=== PATIENT | female | born 1980 | race Caucasian/White ===

== ENCOUNTER 2021-09-20 17:03 | Observation (INO) | payer OTHER, MEDICAID, SELFPAY ==
[2021-09-20 17:43] VITALS: BP 140/103; PULSE 117; RESP 22; TEMP 36.8; O2SAT 96; BMI 17.1
--- NOTE | 2021-09-20 17:52 | DI.RAD.S_ITS ---
PROCEDURE: XR CHEST 1V INDICATIONS: suspected sepsis TECHNIQUE: One view of the chest was acquired. COMPARISON: None. FINDINGS: Surgical changes and devices: None. Lungs and pleura: Lungs are clear. No pleural effusions or pneumothorax. Mediastinum: Mediastinal contours appear normal. Heart size is normal. Bones and chest wall: No suspicious bony lesions. Overlying soft tissues appear unremarkable. IMPRESSION: No acute cardiothoracic abnormality. Dictated by: Xavier Shah M.D. on 09/20/2021 at 18:37 Approved by: Xavier Shah M.D. on 09/20/2021 at 18:37
[2021-09-20] MEDS: SODIUM CHLORIDE 0.9% 1,000 ML 1000 ML IV (18:45)
--- NOTE | 2021-09-20 18:48 | ED_ITS ---
HPI - Extremity Problem <KRISTEL Lozano - Last Filed: 09/20/21 19:54> General Chief complaint: Extremity Problem,Nontraumatic Stated complaint: Infection lower left leg Time Seen by Provider: 09/20/21 17:51 Source: patient Mode of arrival: Ambulatory History of Present Illness HPI Narrative: 41-year-old female, daily smoker, who presents emergency department with left lower extremity pain, redness and swelling x4 days extending to her distal thigh. Patient with history MRSA and fentanyl use. Patient reports that she woke up after sleeping for 2 days, following a rivera, and noticed that her left leg was red and swollen. Patient went to [facility] where she was admitted for 2 days, but left Against Medical Advice because she did not like the care she was receiving. Previous CT left lower extremity conducted September 18 revealed the impression: Diffuse soft tissue edema and anterior gooden, ankle as well as the dorsal posterior plantar aspect of the foot consistent with cellulitis. Patient's mother insisted that she come in to [facility] to receive treatment Related Data Home Medications Medication Instructions Recorded Confirmed No Known Home Medications 09/20/21 09/20/21 Allergies Allergy/AdvReac Type Severity Reaction Status Date / Time sulfamethoxazole Allergy Verified 09/20/21 17:42 [From Bactrim] trimethoprim [From Bactrim] Allergy Verified 09/20/21 17:42 Review of Systems <KRISTEL Lozano - Last Filed: 09/20/21 19:54> Review of Systems Narrative: Narrative: GENERAL: Denies chills, fatigue, fever, sweats. See HPI HEENT: Denies sinus pain, ear pain, sore throat, difficulty swallowing, dizziness. RESPIRATORY: Denies dyspnea, cough, wheezing, sputum. CARDIOVASCULAR: Denies chest pain, palpitations, edema. GASTROINTESTINAL: Denies nausea, vomiting, abdominal pain, diarrhea, constipation. : Denies dysuria, frequency, incontinence, hematuria, urinary retention, flank pain. MSK: Denies weakness, joint pain, or bony pain. SKIN: Endorses pain, redness and swelling of left lower extremity. NEUROLOGIC: Denies weakness, dizziness, headache, numbness, confusion. PSYCHIATRIC: No concerning psychosocial issues. Patient History <KRISTEL Lozano - Last Filed: 09/20/21 19:54> Medical History (Updated 09/20/21 @ 23:28 by Carmen Dixon [facility]) History of narcotic addiction Methamphetamine use MRSA (methicillin resistant staph aureus) culture positive Surgical History (Updated 09/20/21 @ 23:28 [facility] History of breast augmentation Family History (Updated 09/20/21 @ 23:37 by [facility] Mother Hypertension Brother Bipolar 1 disorder, depressed Social History household members: none Smoking Status: Current every day smoker alcohol intake: current Smoking Status: Current every day smoker Substance Use Type: former substance user and marijuana Exam <KRISTEL Lozano - Last Filed: 09/20/21 19:54> Narrative Exam Narrative: Exam Narrative: GENERAL: This is a well-nourished, well-developed patient, in no acute distress HEAD: Atraumatic. Normocephalic. EYES: Pupils equal round and reactive. Extraocular motions intact. No scleral icterus, injection or drainage. ENT: Nose without bleeding, purulent drainage. Throat without erythema, tonsillar hypertrophy or exudate. Airway patent. NECK: Trachea midline. No JVD or lymphadenopathy. Nontender. CARDIOVASCULAR: Regular rate and rhythm without murmurs, peripheral pulses intact, cap refill <2 sec. RESPIRATORY: Breath sounds equal and clear bilaterally. No wheezes, rales, or rhonchi. No cough. No increased respiratory effort. No accessory muscle use. GASTROINTESTINAL: Abdomen soft, non-tender, nondistended without guarding or rebound. No suprapubic pain. MSK: Moves all extremities. Normal range of motion, no clubbing or edema. Neurovascularly intact. NEURO: A&O x 3. SKIN: Left lower extremity is red, warm and swollen from the knee down. Pen douglass outlining previous swelling by [facility]. Initial Vital Signs Initial Vital Signs: Vital Signs Temperature 98.3 F 09/20/21 17:43 Pulse Rate 117 H 09/20/21 17:43 Respiratory Rate 22 09/20/21 17:43 Blood Pressure 140/103 H 09/20/21 17:43 Pulse Oximetry 96 09/20/21 17:43 Oxygen Delivery Method 09/20/21 17:43 Reviewed <Erick Blevins MD - Last Filed: 09/21/21 06:37> Initial Vital Signs Initial Vital Signs: Vital Signs Temperature 98.3 F 09/20/21 17:43 Pulse Rate 117 H 09/20/21 17:43 Respiratory Rate 22 09/20/21 17:43 Blood Pressure 140/103 H 09/20/21 17:43 Pulse Oximetry 96 09/20/21 17:43 Oxygen Delivery Method 09/20/21 17:43 Course <KRISTEL Lozano - Last Filed: 09/20/21 19:54> Orders Ordered: ED Orders 09/20/21 22:25 Urinalysis and Microscopic Urgent 09/21/21 05:20 Complete Blood Count AUTO DIFF Routine Comprehensive Metabolic Panel Routine Acetaminophen (Acetaminophen 325 Mg Tablet) 650 mg PO Q6HR PRN PRN Reason: Fever/Mild Pain (1-3) Enoxaparin Sodium (Enoxaparin 40 Mg/0.4 Ml Syringe) 40 mg SUBCUT DAILY LAURY Vancomycin HCl (Vancomycin) 1,000 mg in 200 mls @ 100 mls/hr IV Q12H LAURY Last Admin: 09/21/21 00:03 Dose: 100 mls/hr Documented By: PERI Sodium Chloride (Normal Saline 0.9%) 1,000 mls @ 84 mls/hr IV CONT LAURY Ondansetron HCl (Ondansetron 4 Mg Odt) 4 mg PO Q8HR PRN PRN Reason: Nausea And Vomiting Oxycodone HCl (Oxycodone Ir 10 Mg Tablet) 10 mg PO Q4HR PRN PRN Reason: Pain, Severe (7-10) Last Admin: 09/20/21 23:25 Dose: 10 mg Documented By: AGW Discontinued Medications Sodium Chloride (Normal Saline 0.9%) 1,000 mls @ 1,000 mls/hr IV BOLUS ONE Stop: 09/20/21 18:51 Last Infusion: 09/20/21 20:43 Dose: 0 mls/hr Documented By: Admin: 09/20/21 18:45 Dose: 1,000 mls/hr Documented By: BV Lactated Ringer's (Lactated Ringers) 1,000 mls @ 150 mls/hr IV CONT LAURY Last Admin: 09/20/21 23:02 Dose: 150 mls/hr Documented By: PERI Vancomycin HCl (Vancomycin Per Pharmacy) 1 request MISC NOW ONE Stop: 09/20/21 20:49 Last Admin: 09/21/21 00:04 Dose: 1 request Documented By: PERI Consultations Consultation #1: Dr. Dixon, hospitalist, agreed to admission for cellulitis. Vital Signs Vital signs: Vital Signs - 8 hr 09/20/21 17:43 Temperature 98.3 F Pulse Rate 117 H Respiratory Rate 22 Blood Pressure 140/103 H Pulse Oximetry 96 Oxygen Delivery Method Room Air <Erick Blevins MD - Last Filed: 09/21/21 06:37> Orders Ordered: ED Orders 09/20/21 22:25 Urinalysis and Microscopic Urgent 09/21/21 05:20 Complete Blood Count AUTO DIFF Routine Comprehensive Metabolic Panel Routine Acetaminophen (Acetaminophen 325 Mg Tablet) 650 mg PO Q6HR PRN PRN Reason: Fever/Mild Pain (1-3) Enoxaparin Sodium (Enoxaparin 40 Mg/0.4 Ml Syringe) 40 mg SUBCUT DAILY LAURY Vancomycin HCl (Vancomycin) 1,000 mg in 200 mls @ 100 mls/hr IV Q12H LAURY Last Admin: 09/21/21 00:03 Dose: 100 mls/hr Documented By: PERI Sodium Chloride (Normal Saline 0.9%) 1,000 mls @ 84 mls/hr IV CONT LAURY Ondansetron HCl (Ondansetron 4 Mg Odt) 4 mg PO Q8HR PRN PRN Reason: Nausea And Vomiting Oxycodone HCl (Oxycodone Ir 10 Mg Tablet) 10 mg PO Q4HR PRN PRN Reason: Pain, Severe (7-10) Last Admin: 09/20/21 23:25 Dose: 10 mg Documented By: PERI Discontinued Medications Sodium Chloride (Normal Saline 0.9%) 1,000 mls @ 1,000 mls/hr IV BOLUS ONE Stop: 09/20/21 18:51 Last Infusion: 09/20/21 20:43 Dose: 0 mls/hr Documented By: Admin: 09/20/21 18:45 Dose: 1,000 mls/hr Documented By: BV Lactated Ringer's (Lactated Ringers) 1,000 mls @ 150 mls/hr IV CONT LAURY Last Admin: 09/20/21 23:02 Dose: 150 mls/hr Documented By: PERI Vancomycin HCl (Vancomycin Per Pharmacy) 1 request MISC NOW ONE Stop: 09/20/21 20:49 Last Admin: 09/21/21 00:04 Dose: 1 request Documented By: PERI Vital Signs Vital signs: Vital Signs - 8 hr 09/20/21 17:43 Temperature 98.3 F Pulse Rate 117 H Respiratory Rate 22 Blood Pressure 140/103 H Pulse Oximetry 96 Oxygen Delivery Method Room Air MDM - Extremity (Nontraumatic) <KRISTEL Lozano - Last Filed: 09/20/21 19:54> Differential Diagnosis Differential diagnosis: Likely cellulitis and lower extremity edema; Unlikely other (sepsis) Lab Data Result diagrams: 09/21/21 05:20 09/21/21 05:20 Labs: Lab Results 09/20/21 09/20/21 09/20/21 Range/Units 18:39 18:39 18:39 WBC 8.4 (4.5-11.0) X10^3/uL RBC 3.97 L (4.0-5.2) X10^6/uL Hgb 12.3 (12.0-16.0) g/dL Hct 35.2 L (36-46) % MCV 88.6 (80-100) fL MCH 30.9 (26-34) PG MCHC 34.9 (30-36) % RDW 13.2 (11.6-14.8) % Plt Count 287 (150-400) X10^3/uL Neut % (Auto) 75.7 H (50-75) % Lymph % (Auto) 14.8 L (25-40) % [place] % (Auto) 8.4 (3-14) % Eos % (Auto) 0.7 L (2-4) % Baso % (Auto) 0.4 (0-2) % Neut # (Auto) 6400 (6152-6222) /uL Lymph # (Auto) 1200 (2553-2010) /uL [place] # (Auto) 700 (0-900) /uL Eos # (Auto) 100 (0-450) /uL Baso # (Auto) 0 (0-100) /uL Sodium 139 (137-145) mmol/L Potassium 3.4 (3.4-5.1) mmol/L Chloride 102 (98-107) mmol/L Carbon Dioxide 30 (22-32) mmol/L BUN 7 (7-17) mg/dL Creatinine 0.61 (0.52-1.04) mg/dL Estimated GFR > 60 (>60) mL/min BUN/Creatinine Ratio 11.5 (6-22) Glucose 106 H (70-100) mg/dL Lactate 0.9 (0.7-2.1) mmol/L Calcium 9.2 (8.4-10.2) mg/dL Magnesium (1.6-2.3) mg/dL Total Bilirubin 0.3 (0.2-1.3) mg/dL AST 29 (14-36) IU/L ALT 24 (<35) IU/L Alkaline Phosphatase 90 (38-126) U/L Total Protein 7.6 (6.3-8.2) g/dL Albumin 4.0 (3.5-5.0) g/dL Globulin 3.6 (1.7-4.1) g/dL Albumin/Globulin Ratio 1.1 (1.0-2.8) Lipase 22 L (23-300) U/L Procalcitonin 0.09 (<0.5) ng/mL SARS-CoV-2 (PCR) (Negative) 09/20/21 09/20/21 Range/Units 18:39 18:40 WBC (4.5-11.0) X10^3/uL RBC (4.0-5.2) X10^6/uL Hgb (12.0-16.0) g/dL Hct (36-46) % MCV (80-100) fL MCH (26-34) PG MCHC (30-36) % RDW (11.6-14.8) % Plt Count (150-400) X10^3/uL Neut % (Auto) (50-75) % Lymph % (Auto) (25-40) % [place] % (Auto) (3-14) % Eos % (Auto) (2-4) % Baso % (Auto) (0-2) % Neut # (Auto) (8365-8710) /uL Lymph # (Auto) (3084-9741) /uL [place] # (Auto) (0-900) /uL Eos # (Auto) (0-450) /uL Baso # (Auto) (0-100) /uL Sodium (137-145) mmol/L Potassium (3.4-5.1) mmol/L Chloride (98-107) mmol/L Carbon Dioxide (22-32) mmol/L BUN (7-17) mg/dL Creatinine (0.52-1.04) mg/dL Estimated GFR (>60) mL/min BUN/Creatinine Ratio (6-22) Glucose (70-100) mg/dL Lactate (0.7-2.1) mmol/L Calcium (8.4-10.2) mg/dL Magnesium 1.9 (1.6-2.3) mg/dL Total Bilirubin (0.2-1.3) mg/dL AST (14-36) IU/L ALT (<35) IU/L Alkaline Phosphatase (38-126) U/L Total Protein (6.3-8.2) g/dL Albumin (3.5-5.0) g/dL Globulin (1.7-4.1) g/dL Albumin/Globulin Ratio (1.0-2.8) Lipase (23-300) U/L Procalcitonin (<0.5) ng/mL SARS-CoV-2 (PCR) Negative (Negative) Imaging Data Chest x-ray: Radiologist's Impression: [place] [address] XRay Report Signed Patient: Ruby Staley MR#: [id number] : 1980 Acct:[id number] Age/Sex: 41 / F Date of Service: 09/20/21 Loc: ED Accession Number: [id number] ?? Procedure: XR chest 1V Ordering Provider: Yolanda Laboy D.O. PROCEDURE:? XR CHEST 1V ? INDICATIONS:? suspected sepsis ? TECHNIQUE:? One view of the chest was acquired.? ? COMPARISON:? None. ? FINDINGS:? ? Surgical changes and devices:? None.? ? Lungs and pleura:? Lungs are clear.? No pleural effusions or pneumothorax.? ? Mediastinum:? Mediastinal contours appear normal.? Heart size is normal.? ? Bones and chest wall:? No suspicious bony lesions.? Overlying soft tissues appear unremarkable.? ? IMPRESSION:? No acute cardiothoracic abnormality.? ? ? Dictated by: Xavier Shah M.D. on 09/20/2021 at 18:37 ? ? Approved by: Xavier Shah M.D. on 09/20/2021 at 18:37 ? [facility] Narrative Medical decision making narrative: 41-year-old female presents emergency department with left lower extremity cellulitis x4 days. Patient was previously treated at [facility] but left Against Medical Advice due to not appreciating the care she was receiv ing. Chest x-ray was normal. Labs are unremarkable. Discussed case with Dr. Dixon, hospitalist, who agreed to admission for cellulitis. Discussed plan of care with patient, who was agreeable with course of action. <Erick Blevins MD - Last Filed: 09/21/21 06:37> Lab Data Labs: Lab Results 09/20/21 09/20/21 09/20/21 Range/Units 18:39 18:39 18:39 WBC 8.4 (4.5-11.0) X10^3/uL RBC 3.97 L (4.0-5.2) X10^6/uL Hgb 12.3 (12.0-16.0) g/dL Hct 35.2 L (36-46) % MCV 88.6 (80-100) fL MCH 30.9 (26-34) PG MCHC 34.9 (30-36) % RDW 13.2 (11.6-14.8) % Plt Count 287 (150-400) X10^3/uL Neut % (Auto) 75.7 H (50-75) % Lymph % (Auto) 14.8 L (25-40) % [place] % (Auto) 8.4 (3-14) % Eos % (Auto) 0.7 L (2-4) % Baso % (Auto) 0.4 (0-2) % Neut # (Auto) 6400 (6266-5643) /uL Lymph # (Auto) 1200 (1855-7645) /uL [place] # (Auto) 700 (0-900) /uL Eos # (Auto) 100 (0-450) /uL Baso # (Auto) 0 (0-100) /uL Sodium 139 (137-145) mmol/L Potassium 3.4 (3.4-5.1) mmol/L Chloride 102 (98-107) mmol/L Carbon Dioxide 30 (22-32) mmol/L BUN 7 (7-17) mg/dL Creatinine 0.61 (0.52-1.04) mg/dL Estimated GFR > 60 (>60) mL/min BUN/Creatinine Ratio 11.5 (6-22) Glucose 106 H (70-100) mg/dL Lactate 0.9 (0.7-2.1) mmol/L Calcium 9.2 (8.4-10.2) mg/dL Magnesium (1.6-2.3) mg/dL Total Bilirubin 0.3 (0.2-1.3) mg/dL AST 29 (14-36) IU/L ALT 24 (<35) IU/L Alkaline Phosphatase 90 (38-126) U/L Total Protein 7.6 (6.3-8.2) g/dL Albumin 4.0 (3.5-5.0) g/dL Globulin 3.6 (1.7-4.1) g/dL Albumin/Globulin Ratio 1.1 (1.0-2.8) Lipase 22 L (23-300) U/L Procalcitonin 0.09 (<0.5) ng/mL SARS-CoV-2 (PCR) (Negative) 09/20/21 09/20/21 Range/Units 18:39 18:40 WBC (4.5-11.0) X10^3/uL RBC (4.0-5.2) X10^6/uL Hgb (12.0-16.0) g/dL Hct (36-46) % MCV (80-100) fL MCH (26-34) PG MCHC (30-36) % RDW (11.6-14.8) % Plt Count (150-400) X10^3/uL Neut % (Auto) (50-75) % Lymph % (Auto) (25-40) % [place] % (Auto) (3-14) % Eos % (Auto) (2-4) % Baso % (Auto) (0-2) % Neut # (Auto) (9688-0000) /uL Lymph # (Auto) (5896-8937) /uL [place] # (Auto) (0-900) /uL Eos # (Auto) (0-450) /uL Baso # (Auto) (0-100) /uL Sodium (137-145) mmol/L Potassium (3.4-5.1) mmol/L Chloride (98-107) mmol/L Carbon Dioxide (22-32) mmol/L BUN (7-17) mg/dL Creatinine (0.52-1.04) mg/dL Estimated GFR (>60) mL/min BUN/Creatinine Ratio (6-22) Glucose (70-100) mg/dL Lactate (0.7-2.1) mmol/L Calcium (8.4-10.2) mg/dL Magnesium 1.9 (1.6-2.3) mg/dL Total Bilirubin (0.2-1.3) mg/dL AST (14-36) IU/L ALT (<35) IU/L Alkaline Phosphatase (38-126) U/L Total Protein (6.3-8.2) g/dL Albumin (3.5-5.0) g/dL Globulin (1.7-4.1) g/dL Albumin/Globulin Ratio (1.0-2.8) Lipase (23-300) U/L Procalcitonin (<0.5) ng/mL SARS-CoV-2 (PCR) Negative (Negative) Discharge Plan Departure Patient Disposition: Admitted As Inpatient Clinical Impression: Cellulitis Admit Date/Time: 09/20/21 21:08 Admit Provider: Carmen Dixon <Erick Blevins MD - Last Filed: 09/21/21 06:37> Cosign ED Attending Cosignature Attestation: I was immediately available in the department for consultation. ?This documentation has been reviewed and I agree with assessment and plan. Supervised by Erick Blevins MD
[2021-09-20 19:03] LABS: Add Manual Diff / Slide Review NO; Basophils Absolute Auto 0 /uL (0-100); Basophils Percent Auto 0.4 % (0-2); Eosinophils Absolute Auto 100 /uL (0-450); Eosinophils Percent Auto 0.7 % (2-4); Hematocrit 35.2 % (36-46); Hemoglobin 12.3 g/dL (12.0-16.0); Lymphocytes Absolute Auto 1200 /uL (1100-4500); Lymphocytes Percent Auto 14.8 % (25-40); Mean Corpuscular HGB Conc 34.9 % (30-36); Mean Corpuscular Hemoglobin 30.9 PG (26-34); Mean Corpuscular Volume 88.6 fL (80-100); Monocytes Absolute Auto 700 /uL (0-900); Monocytes Percent Auto 8.4 % (3-14); Neutrophils Absolute Auto 6400 /uL (1500-7000); Neutrophils Percent Auto 75.7 % (50-75); Platelet Count 287 X10^3/uL (150-400); Red Blood Cell Count 3.97 X10^6/uL (4.0-5.2); Red Cell Distribution Width 13.2 % (11.6-14.8); White Blood Cell Count 8.4 X10^3/uL (4.5-11.0)
[2021-09-20 19:05] LABS: COVID19 -Nasal RAPID Negative (Negative)
[2021-09-20 19:10] LABS: Alanine Aminotransferase 24 IU/L (<35); Albumin Globulin Ratio 1.1 (1.0-2.8); Alkaline Phosphatase 90 U/L (38-126); Aspartate Aminotransferase 29 IU/L (14-36); BUN Creatinine Ratio 11.5 (6-22); Bilirubin Total 0.3 mg/dL (0.2-1.3); Blood Urea Nitrogen 7 mg/dL (7-17); Calcium 9.2 mg/dL (8.4-10.2); Carbon Dioxide 30 mmol/L (22-32); Chloride 102 mmol/L (98-107); Estimated Glomerular Filt Rate > 60 mL/min (>60); Globulin 3.6 g/dL (1.7-4.1); Glucose 106 mg/dL (70-100); HEMOLYSIS < 15 (0-50); Lipase 22 U/L (23-300); Potassium 3.4 mmol/L (3.4-5.1); Sodium 139 mmol/L (137-145); Total Protein 7.6 g/dL (6.3-8.2)
[2021-09-20 19:11] LABS: Lactate (Lactic Acid) 0.9 mmol/L (0.7-2.1)
[2021-09-20 19:27] LABS: Procalcitonin 0.09 ng/mL (<0.5)
[2021-09-20 20:43] VITALS: O2SAT 100
[2021-09-20 21:04] LABS: Magnesium 1.9 mg/dL (1.6-2.3)
[2021-09-20 21:59] VITALS: BMI 17.1
[2021-09-20 22:15] VITALS: BP 144/94; PULSE 85; RESP 16; TEMP 37.1; O2SAT 100
[2021-09-20] MEDS: LACTATED RINGERS 1,000 ML 150 ML IV (23:02)
--- NOTE | 2021-09-20 23:09 | PM.HP.1 ---
History of Present Illness History of Present Illness Date Patient Seen: 09/20/21 Time Patient Seen: 20:54 Chief complaint: Infection lower left leg Narrative: Ruby Staley is a pleasant 41-year-old female with a history fentanyl, methamphetamine use, cellulitis, and MRSA, presented to the ED for left lower leg swelling redness and pain. The patient reports that approximately 2 weeks ago her left lower leg began showing signs of increasing redness swelling warmth weeping and pain, she reports that she was incoherent for approximately 2 days prior to going to [facility]. She also noted swelling and inflammation of the right hand index nail bed matrix (still erythemic and inflammed), and an abscess to the left breast which is now scabbed over and healing. Patient went to [facility] was admitted but states that she left Against Medical Advice as she felt she was not being treated well. Patient believes she received possibly 1 dose of IV antibiotics prior to leaving Against Medical Advice. Patient denies any insect bites, injury, or trauma to the left lower leg, or specific abscess. Patient's skin appears possible self picking with various stages of healing. Though insect bites are possible due to her living situation. Patient is currently homeless and living out of her truck, unemployed, and last used fentanyl yesterday, notes a distant history of Percocet addiction, and methamphetamine use. She denies any alcohol intake and smokes a half a pack per day times 30 years. Patient denies IV drug use. Patient denies any fever, body aches, chills, abdominal pain, nausea, vomiting, diarrhea, chest pain, shortness of breath, or headache. Patient does complain pain to the left lower leg ,erythema, warmth, and inflammation begins just below the knee and encompasses the entire lower leg and foot. Patient denies any other medical history and takes no medications. Patient notes that she is allergic to Bactrim which resulted in a retinal hemorrhage. Upon admit patient met sepsis criteria although not septic temp 98.3?, BP 140/103, HR 117, R 22, O2 saturation 96% on room air. Patient is stable not symptomatic and does not appear to be septic or in septic shock CBC, CMP, lactate, lipase, and procalcitonin are all within normal limits. Patient's chest x-ray is negative for any cardiopulmonary processes. ED reported that the patient's lower left extremity CT from 09/18 demonstrated Diffuse soft tissue edema and anterior gooden, ankle as well as the dorsal posterior plantar aspect of the foot consistent with cellulitis. Have requested records diagnostic and laboratory findings from [facility]. Blood cultures were drawn in ED. patient to be admitted for left lower leg cellulitis. Patient History Medical History (Updated 09/20/21 @ 23:28 by MICHELLE Brown) History of narcotic addiction Methamphetamine use MRSA (methicillin resistant staph aureus) culture positive Surgical History (Updated 09/20/21 @ 23:28 by MICHELLE Brown) History of breast augmentation Family & Social History Family History (Updated 09/20/21 @ 23:37 by MICHELLE Brown) Mother Hypertension Brother Bipolar 1 disorder, depressed Social History: household members none Prior Living Arrangements Homeless- living in truck. Safety & Behavioral: Feels Safe in Current Yes Environment Been Physically Hurt or No Threatened By a Person Tobacco & Substance use: Tobacco type cigarettes Smoking Status Current every day smoker 1/2ppd x 30 yrs alcohol intake current alcohol intake frequency 0-2 drinks per day Substance Use Type marijuana,former opiates, regular fentanyl use, occasional methamphetamine use Meds Home Medications and Allergies Home Medications Medication Instructions Recorded Confirmed Type No Known Home Medications 09/20/21 09/20/21 History Allergies Allergy/AdvReac Type Severity Reaction Status Date / Time sulfamethoxazole Allergy Verified 09/20/21 17:42 [From Bactrim] trimethoprim [From Bactrim] Allergy Verified 09/20/21 17:42 Review of Systems Review of Systems Narrative: All 12 point systems reviewed with the patient and are negative except otherwise documented. Exam Vital Signs (past 8 hours): - 09/20/21 17:43 09/20/21 22:15 Temperature 98.3 F 98.8 F Pulse Rate 117 H 85 Respiratory Rate 22 16 Blood Pressure 140/103 H 144/94 H Pulse Oximetry 96 100 Oxygen Delivery Method Room Air Oxygen Flow Rate 0 Oxygen Delivery Method Room Air Oxygen Flow Rate 0 Narrative Exam Narrative: General: Patient is a pleasant, thin, poorly nourished appearing female in no distress at this time. HEENT: Normocephalic, atraumatic, extraocular muscles intact, oral pharynx is clear and mucous membranes are moist. Neck is supple and symmetric, trachea is midline, no adenopathy, no thyroid enlargement, nontender, no masses palpated. Negative for JVD Chest: Normal AP diameter and contour without kyphoscoliosis, no nasal flaring, retractions, or tachypneic labored breathing. Lungs: Auscultation of all lung garrison are clear without adventitious sounds, wheezes, rhonchi, or rales. Cardio: S1 & S2 with regular rate and rhythm without murmur, rubs, or gallops, no carotid bruit, no cardiac pulsations present. Abdomen: Soft nontender, negative for organomegaly, or masses. Bowel sounds are present in all 4 quadrants without guarding or rebound, no CVA tenderness. Musculoskeletal: Decreased muscle mass, Left Lower leg: Erythema, inflammation, warmth, and pain beginning just below the knee encompassing down the leg engolfing the foot. Full range of motion intact radial and pedal pulses are normal. Noted scabbing present in various stages of healing, no drainage observed. Erythema has spread be on previous documented outline from [facility]. Skin: Multiple ulcerations, scabbing to skin from the neck down, right hand index nail bed erythema lamberto with inflammation no drainage noted, dime-sized scab noted to the left breast just right of the nipple, with out erythema or inflammation. Neuro: Alert and orientated x3, strength is +5/5 in all extremities, sensation to touch intact, no gross deficits noted of cranial nerves. Psych: Patient has a moderately-kept appearance, appropriate affect, mental status attitude thought context and judgment are appropriate for age. Objective Labs Result Diagrams: 09/20/21 18:39 09/20/21 18:39 Labs: Laboratory Results - last 24 hr 09/20/21 09/20/21 09/20/21 18:39 18:39 18:39 WBC 8.4 RBC 3.97 L Hgb 12.3 Hct 35.2 L MCV 88.6 MCH 30.9 MCHC 34.9 RDW 13.2 Plt Count 287 Neut % (Auto) 75.7 H Lymph % (Auto) 14.8 L [place] % (Auto) 8.4 Eos % (Auto) 0.7 L Baso % (Auto) 0.4 Neut # (Auto) 6400 Lymph # (Auto) 1200 [place] # (Auto) 700 Eos # (Auto) 100 Baso # (Auto) 0 Sodium 139 Potassium 3.4 Chloride 102 Carbon Dioxide 30 BUN 7 Creatinine 0.61 Estimated GFR > 60 BUN/Creatinine Ratio 11.5 Glucose 106 H Lactate 0.9 Calcium 9.2 Magnesium Total Bilirubin 0.3 AST 29 ALT 24 Alkaline Phosphatase 90 Total Protein 7.6 Albumin 4.0 Globulin 3.6 Albumin/Globulin Ratio 1.1 Lipase 22 L Procalcitonin 0.09 SARS-CoV-2 (PCR) 09/20/21 09/20/21 18:39 18:40 WBC RBC Hgb Hct MCV MCH MCHC RDW Plt Count Neut % (Auto) Lymph % (Auto) [place] % (Auto) Eos % (Auto) Baso % (Auto) Neut # (Auto) Lymph # (Auto) [place] # (Auto) Eos # (Auto) Baso # (Auto) Sodium Potassium Chloride Carbon Dioxide BUN Creatinine Estimated GFR BUN/Creatinine Ratio Glucose Lactate Calcium Magnesium 1.9 Total Bilirubin AST ALT Alkaline Phosphatase Total Protein Albumin Globulin Albumin/Globulin Ratio Lipase Procalcitonin SARS-CoV-2 (PCR) Negative Assessment & Plan Assessment & Plan narrative: Ruby Staley is a pleasant 41-year-old female with a history fentanyl, methamphetamine use, cellulitis, and MRSA, who is being admitted for observation for the treatment of left lower leg cellulitis. 1. Cellulitis, left lower leg, acute, with history of MRSA, present on admission -patient did meets the clinical SIRS/sepsis criteria, HR 117, RR 22, source of infection known- patient is stable and does not demonstrate sepsis/septic shock at this time- will monitor closely. -Blood cultures x2 in ED -records from [facility] requested-Imaging, labs, and meds. -LR@ 150 cc/HR -vancomycin per pharmacy -elevate extremity, ice packs as needed, anti-inflammatories -monitor for abscess, compartment syndrome, DVT -PV INSTALLER TECH Consult placed - for possible assistance regarding homelessness, as a contributing factor to her medical condition, causing further failure of outpatient medical management. 2. Elevated blood pressure, acute without the diagnosis of hypertension, present on admission -likely secondary to cellulitis. -initial blood pressure 140/103 -will monitor telemed. 3. Underweight as evidence by BMI of 18.7, acute on chronic, present on admission -dietary consult placed for nutritional counseling, as in adequate nutrition is contributing to her medical condition. 4. Polysubstance use, acute on chronic, present on admission -patient education provided regarding risk factors and detriment to health in chronic use of substances. -Pain management 5. Tobacco abuse, acute on chronic, present on admission -patient education provided regarding tobacco cessation Code status:Full Surrogate decision maker: Mother Mariza DICK PCR: Negative DVT/VTE prophylaxis:Lovenox & SCD on Right Only Disposition: Patient admitted for observation expected length of stay less than 2 midnights, based on response to antibiotics. I have utilized all available immediate resources to obtain, update, or review the patient's current medications. I confirmed that the patient's advanced care plan is present, Code status is documented and/or surrogate decision maker is listed in the patient's medical record. Time Spent With Patient Critical Care time: I spent a total of [] minutes of critical care time on this patient's care today; this time is exclusive of procedural time. Scores Wells' Criteria for PE Clinical signs and symptoms of DVT: No PE is #1 Dx or equally likely: No Heart rate > 100: Yes Immobilization at least 3 days or surg in previous 4 weeks: Yes History of PE or DVT: No Hemoptysis: No Malignancy w/Treatment within 6 months or palliative: No Wells' PE Score total: 3.0 Quality VTE Deep Vein Thrombosis/Pulmonary Embolism Present on Admission: No
[2021-09-20] MEDS: OXYCODONE IR 10 MG TABLET PO (23:25)
[2021-09-21] VITALS (11 sets, daily range): BP systolic 114–136; BP diastolic 70–101; PULSE 60–91; RESP 12–20; TEMP 36.5–36.8; O2SAT 94–100
[2021-09-21] MEDS: VANCOMYCIN 1,000 MG/200 ML PIGGYBACK 100 MG IV ×2 (00:03→12:19)
[2021-09-21] MEDS: VANCOMYCIN PER PHARMACY 1 REQUEST MISC (00:04)
[2021-09-21 00:31] LABS: Appearance Urine UA CLOUDY; Bilirubin Urine UA NEGATIVE (NEGATIVE); Color Urine UA YELLOW; Ketones Urine UA TRACE (NEGATIVE); Leukocyte Esterase Urine UA 1+ (NEGATIVE); Nitrite Urine UA NEGATIVE (Negative); Occult Blood Urine UA TRACE-LYSED (Negative); Protein Urine UA TRACE (Negative); Specific Gravity Urine UA >=1.030 (1.000-1.035); Urobilinogen Urine UA 0.2 E.U./dL (0.2)
[2021-09-21 00:52] LABS: Glucose Urine UA NEGATIVE (Negative); pH Urine UA 5.5 (4.5-8.0)
[2021-09-21 00:53] LABS: Bacteria Urine Few (2-10); RBC Urine 0-1/HPF (0-5/HPF); WBC Urine 1-5/HPF (0-5/HPF)
[2021-09-21 00:54] LABS: Amorphous Sediment Urine 4+; Culture Indicated Urine Specimen Cultured
[2021-09-21 05:38] LABS: Add Manual Diff / Slide Review NO; Basophils Absolute Auto 0 /uL (0-100); Basophils Percent Auto 0.5 % (0-2); Eosinophils Absolute Auto 100 /uL (0-450); Eosinophils Percent Auto 2.5 % (2-4); Hematocrit 30.9 % (36-46); Hemoglobin 10.8 g/dL (12.0-16.0); Lymphocytes Absolute Auto 1300 /uL (1100-4500); Lymphocytes Percent Auto 22.2 % (25-40); Mean Corpuscular HGB Conc 34.9 % (30-36); Mean Corpuscular Hemoglobin 30.6 PG (26-34); Mean Corpuscular Volume 87.7 fL (80-100); Monocytes Absolute Auto 600 /uL (0-900); Neutrophils Absolute Auto 3700 /uL (1500-7000); Neutrophils Percent Auto 63.8 % (50-75); Platelet Count 233 X10^3/uL (150-400); Red Blood Cell Count 3.52 X10^6/uL (4.0-5.2); White Blood Cell Count 5.7 X10^3/uL (4.5-11.0)
[2021-09-21 05:52] LABS: Alanine Aminotransferase 19 IU/L (<35); Albumin 2.9 g/dL (3.5-5.0); Alkaline Phosphatase 81 U/L (38-126); Aspartate Aminotransferase 26 IU/L (14-36); Bilirubin Total 0.1 mg/dL (0.2-1.3); Blood Urea Nitrogen 6 mg/dL (7-17); Calcium 8.2 mg/dL (8.4-10.2); Carbon Dioxide 26 mmol/L (22-32); Chloride 105 mmol/L (98-107); Estimated Glomerular Filt Rate > 60 mL/min (>60); Globulin 2.9 g/dL (1.7-4.1); Glucose 98 mg/dL (70-100); HEMOLYSIS < 15 (0-50); Potassium 3.6 mmol/L (3.4-5.1); Sodium 136 mmol/L (137-145); Total Protein 5.8 g/dL (6.3-8.2)
--- NOTE | 2021-09-21 07:30 | PC.NURSE ---
Admit/NOC Shift Note- Patient arrived to room from ER at 2049. Patient alert and oriented. Admit questions done, medications reviewed, physical assessment done, and skin check completed. Patient oriented to bed and bed controls, lights, phone, menu, bathroom, and call uribe/tv remote. Safety measures in place. patient agrees to call for assistance. Call uribe and phone within reach. will continue to monitor.
[2021-09-21] MEDS: SODIUM CHLORIDE 0.9% 1,000 ML 84 ML IV (07:46)
[2021-09-21] MEDS: OXYCODONE IR 10 MG TABLET PO ×3 (09:57→23:55)
--- NOTE | 2021-09-21 13:36 | CM.DANOTE ---
DCP/Assessment: Reviewed chart. Patient is a 41yr old female admitted to [facility] with LLE cellulitis. No PCP listed. Primary payor is 1)[employer] 2)Medicaid. Met with patient this AM explained CM/SW role. Patient very groggy at time of visit. CONFECTIONERY MAKER requests urine tox screen given patient's documented history of substance abuse. Patient both admitted and declined use during assessment. Patient reports that she plans to return to her truck when medically stable. Patient does receive funding from the state for housing but reports she has not been able to find anything? Patient has 2 dogs that she is not willing to part with. Patient reports dogs are currently safe and not left alone in truck. Patient reports she gets about $900.00 a month for housing. Patient denies any needs from CONFECTIONERY MAKER. Patient reports that she has friend that can pick her up and take her to her truck when medically stable. Notified patient that CM team would continue to follow and check in on her if needs were to arise. Patient agreeable. P: Patient currently on IV abx for cellulitis. CM team to continue to follow. PRESTON Melendez Discharge Planning/Care Management CM Discharge Assessment Start: 09/21/21 13:15 Freq: Status: Active Protocol: Document 09/21/21 13:15 KJS (Rec: 09/21/21 13:36 KJS [id number]) Discharge Planning Assessment Assigned Art Studio Teacher PRESTON Melendez Contact Information Mariza Staley (Mother) ph# [phone] Advance Directives? No History Provided By Patient,Medical Record Prior Living Arrangements Homeless Household Members none Comment Patient reports that she resides in her truck. Independent with ADL's No: Currently with LLE cellulitis Is patient alert and oriented? Yes: Very groggy at time of CONFECTIONERY MAKER visit, requested urine tox screen Comment Patient appears older than age . Patient admits but then denies drug use? Patient has all belongings in room and presents with substance abuse features. Caregiver for Another No: Patient reports that she has 2 dogs. Barriers to Discharge No Comment Patient reports that she will be going back to her truck. Patient gets funding for housing every month from [facility] but has not been able to find a place that will take her 2 dogs. Patient reports getting about $900.00 Patient denies that her dogs are currently in her truck. Transportation Arrangement Patient reports that her friend can provide her transport to her truck. Referrals Initiated Other Additional Comment CONFECTIONERY MAKER to continue checking in with patient on needs. At this time patient denies any needs . Whiteboard Updated in Patient Room with Yes name and ext. # of Art Studio Teacher Review Status In Process Next Review Type Continued Stay Review
[2021-09-21 16:10] LABS: Ur Creatinine Normal (Normal); Ur Specific Gravity Normal (Normal); Urine pH Normal (Normal)
[2021-09-21 16:11] LABS: Urine Cocaine Negative (Negative); Urine Tetrahydrocannabinol Negative (Negative)
[2021-09-21 16:12] LABS: UR Morphine/Opiate cutoff 300 Negative (Negative); Urine Amphetamines Positive (Negative); Urine Barbiturates Negative (Negative); Urine Benzodiazepines Negative (Negative); Urine MDMA Negative (Negative); Urine Methamphetamines Positive (Negative); Urine Phencyclidine Negative (Negative)
[2021-09-21 16:13] LABS: Urine Methadone Negative (Negative); Urine Oxycodone Positive (Negative); Urine Tricyclic Antidepressant Negative (Negative)
--- NOTE | 2021-09-21 17:33 | P.PN_ITS ---
Subjective Subjective Date Patient Seen: 09/21/21 Interval history: 41-year-old female with polysubstance dependence (fentanyl and methamphetamine) use, prior MRSA, admitted last night with left lower extremity cellulitis. Patient had previously been admitted to [facility] but left Against Medical Advice approximately 24 hours later. This morning, patient's RN note she seems quite drowsy. There was some concern she may be taking illicit substances. Overnight, she was given oxycodone for pain per the admitting provider. Patient presently complains of being tired and cold. She complains of pain to her leg. She denies any fentanyl use or prior methamphetamine use, but had admitted it during admission. She is somewhat uncooperative with exam Exam Vital Signs (past 8 hours): - 09/21/21 13:00 09/21/21 12:00 09/21/21 16:58 Temperature 97.7 F 98.0 F Pulse Rate 91 H 60 Respiratory Rate 14 14 Blood Pressure 133/81 136/101 H Pulse Oximetry 100 100 99 Oxygen Delivery Method Room Air Oxygen Flow Rate 0 0 0 09/21/21 16:00 Temperature Pulse Rate Respiratory Rate Blood Pressure Pulse Oximetry 99 Oxygen Delivery Method Room Air Oxygen Flow Rate 0 Oxygen Delivery Method Room Air Oxygen Flow Rate 0 Narrative Exam Narrative: GEN: Somnolent, but does arouse and answer questions, NAD HEENT:NC, Face symmetric CHEST: Respiratory excursions symmetric, CTAB CV: RRR, no M/R/G ABD: Soft, NT/ND, BT present in all 4 quadrants, no organomegaly or masses EXTR: warm, well perfused, no C/C/E to the right lower extremity, left lower extremity reveals some moderate swelling, erythema, and warmth but it appears minimally outside of previous demarcation done at [facility], improved compared to marking was done in our facility last evening SKIN: warm and dry, no rash NEURO: Nonfocal Objective Labs Result Diagrams: 09/21/21 05:20 09/21/21 05:20 Labs: Laboratory Results - last 24 hr 09/20/21 09/20/21 09/20/21 18:39 18:39 18:39 WBC 8.4 RBC 3.97 L Hgb 12.3 Hct 35.2 L MCV 88.6 MCH 30.9 MCHC 34.9 RDW 13.2 Plt Count 287 Neut % (Auto) 75.7 H Lymph % (Auto) 14.8 L [place] % (Auto) 8.4 Eos % (Auto) 0.7 L Baso % (Auto) 0.4 Neut # (Auto) 6400 Lymph # (Auto) 1200 [place] # (Auto) 700 Eos # (Auto) 100 Baso # (Auto) 0 Sodium 139 Potassium 3.4 Chloride 102 Carbon Dioxide 30 BUN 7 Creatinine 0.61 Estimated GFR > 60 BUN/Creatinine Ratio 11.5 Glucose 106 H Lactate 0.9 Calcium 9.2 Magnesium Total Bilirubin 0.3 AST 29 ALT 24 Alkaline Phosphatase 90 Total Protein 7.6 Albumin 4.0 Globulin 3.6 Albumin/Globulin Ratio 1.1 Lipase 22 L Procalcitonin 0.09 Urine Color Urine Appearance Urine pH Ur Specific [place] Urine Protein Urine Glucose (UA) Urine Ketones Urine Occult Blood Urine Nitrate Urine Bilirubin Urine Urobilinogen Ur Leukocyte Esterase Urine RBC Urine WBC Amorphous Sediment Urine Bacteria Ur Culture Indicated? U Opiates 300ng/mL cut Ur Oxycodone Screen Urine Methadone Screen Ur Barbiturates Screen U Tricyclic Antidepress Ur Phencyclidine Scrn Ur Amphetamines Screen U Methamphetamines Scrn Ur MDMA Scrn (Ecstasy) U Benzodiazepines Scrn Urine Cocaine Screen U Marijuana (THC) Screen SARS-CoV-2 (PCR) 09/20/21 09/20/21 09/20/21 18:39 18:40 22:25 WBC RBC Hgb Hct MCV MCH MCHC RDW Plt Count Neut % (Auto) Lymph % (Auto) [place] % (Auto) Eos % (Auto) Baso % (Auto) Neut # (Auto) Lymph # (Auto) [place] # (Auto) Eos # (Auto) Baso # (Auto) Sodium Potassium Chloride Carbon Dioxide BUN Creatinine Estimated GFR BUN/Creatinine Ratio Glucose Lactate Calcium Magnesium 1.9 Total Bilirubin AST ALT Alkaline Phosphatase Total Protein Albumin Globulin Albumin/Globulin Ratio Lipase Procalcitonin Urine Color Yellow Urine Appearance Cloudy Urine pH 5.5 Ur Specific [place] >=1.030 H Urine Protein Trace H Urine Glucose (UA) Negative Urine Ketones Trace H Urine Occult Blood Trace-lysed Urine Nitrate Negative Urine Bilirubin Negative Urine Urobilinogen 0.2 Ur Leukocyte Esterase 1+ H Urine RBC 0-1/hpf Urine WBC 1-5/hpf Amorphous Sediment 4+ Urine Bacteria Few (2-10) H Ur Culture Indicated? Specimen cultured U Opiates 300ng/mL cut Ur Oxycodone Screen Urine Methadone Screen Ur Barbiturates Screen U Tricyclic Antidepress Ur Phencyclidine Scrn Ur Amphetamines Screen U Methamphetamines Scrn Ur MDMA Scrn (Ecstasy) U Benzodiazepines Scrn Urine Cocaine Screen U Marijuana (THC) Screen SARS-CoV-2 (PCR) Negative 09/21/21 09/21/21 09/21/21 05:20 05:20 15:40 WBC 5.7 RBC 3.52 L Hgb 10.8 L Hct 30.9 L MCV 87.7 MCH 30.6 MCHC 34.9 RDW 13.0 Plt Count 233 Neut % (Auto) 63.8 Lymph % (Auto) 22.2 L [place] % (Auto) 11.0 Eos % (Auto) 2.5 Baso % (Auto) 0.5 Neut # (Auto) 3700 Lymph # (Auto) 1300 [place] # (Auto) 600 Eos # (Auto) 100 Baso # (Auto) 0 Sodium 136 L Potassium 3.6 Chloride 105 Carbon Dioxide 26 BUN 6 L Creatinine 0.50 L Estimated GFR > 60 BUN/Creatinine Ratio 12.0 Glucose 98 Lactate Calcium 8.2 L Magnesium Total Bilirubin 0.1 L AST 26 ALT 19 Alkaline Phosphatase 81 Total Protein 5.8 L Albumin 2.9 L Globulin 2.9 Albumin/Globulin Ratio 1.0 Lipase Procalcitonin Urine Color Urine Appearance Urine pH Ur Specific [place] Urine Protein Urine Glucose (UA) Urine Ketones Urine Occult Blood Urine Nitrate Urine Bilirubin Urine Urobilinogen Ur Leukocyte Esterase Urine RBC Urine WBC Amorphous Sediment Urine Bacteria Ur Culture Indicated? U Opiates 300ng/mL cut Negative Ur Oxycodone Screen Positive H Urine Methadone Screen Negative Ur Barbiturates Screen Negative U Tricyclic Antidepress Negative Ur Phencyclidine Scrn Negative Ur Amphetamines Screen Positive H U Methamphetamines Scrn Positive H Ur MDMA Scrn (Ecstasy) Negative U Benzodiazepines Scrn Negative Urine Cocaine Screen Negative U Marijuana (THC) Screen Negative SARS-CoV-2 (PCR) PFSH Medical History (Updated 09/20/21 @ 23:28 by MICHELLE Brown) History of narcotic addiction Methamphetamine use MRSA (methicillin resistant staph aureus) culture positive Surgical History (Updated 09/20/21 @ 23:28 by MICHELLE Brown) History of breast augmentation Family History (Updated 09/20/21 @ 23:37 by [facility]) Mother Hypertension Brother Bipolar 1 disorder, depressed Social History household members: none Smoking Status: Current every day smoker alcohol intake: current Assessment & Plan Assessment & Plan narrative: 1. Left lower extremity cellulitis Patient does have previous history of MRSA. She has multiple healed wounds on her legs bilaterally. It does appear she is improving compared with admission. Remains on IV vancomycin. At this time monotherapy appears to be effective. Continue elevation, analgesics as needed. No evidence for DVT. 2. Polysubstance dependence Patient denies presently that she uses though admitted on admission. Will send a urine drug screen for baseline in the event there are further concerns and a repeat is required. She has all of her belongings in the room with her and certainly has had a known history of drug use. She denies IV drug use. 3. Elevated blood pressures [place] to be secondary to an infection. Overall blood pressures are improved. 4. Protein calorie malnutrition Patient is underweight as evidenced by BMI of 18 7 kg. She is homeless. Dietitian consult pending. 5. Tobacco dependence Nicotine patch As needed Code status Full Prophylaxis Lovenox Disposition Continued acute care hospitalization. Anticipate another 24-48 hours hospitalization Time Spent With Patient Critical Care time: I spent a total of [] minutes of critical care time on this patient's care today; this time is exclusive of procedural time. Quality VTE Deep Vein Thrombosis/Pulmonary Embolism Present on Admission: No
[2021-09-21] MEDS: VANCOMYCIN 1,000 MG/200 ML PIGGYBACK 200 MG IV ×2 (18:22→23:47)
--- NOTE | 2021-09-21 19:45 | PC.NURSE ---
18:15 Pt states, leaving if bed alarm is put on, does not want to be treated like a child. Educated pt that the bed alarm must be on for safety. Notified Dr. Leyva and she states, bed alarm must be on for safety and pt can leave AMA if she wants. Pts significant other came in to visit and he was notified that she can not have visitors. Notified pt that she is not able to have visitors due to concerns of illicit drug use. Pt states,will leave because she is being treated differently and can not have visitors and will sign paperwork to leave. Educated pt that she has cellulits and MRSA and that Dr. Leyva has recommended IV antibiotics as treatment. Pt provided with education about cellulitis. Pt states, her has told her to stay at the hospital and that she does not have a ride home so she will stay.
[2021-09-22] VITALS (7 sets, daily range): BP systolic 126–138; BP diastolic 75–86; PULSE 75–88; RESP 12–19; TEMP 36.6–36.9; O2SAT 97–100
[2021-09-22] MEDS: VANCOMYCIN 1,000 MG/200 ML PIGGYBACK 200 MG IV ×4 (06:00→23:53)
--- NOTE | 2021-09-22 07:41 | P.PN_ITS ---
Subjective Subjective Date Patient Seen: 09/21/21 Interval history: States her left leg hurts. She is quite somnolent and doesn't respond to many questions. Exam Vital Signs (past 8 hours): - 09/22/21 00:00 09/22/21 01:00 09/22/21 04:00 Temperature 98.5 F Pulse Rate 88 Respiratory Rate 18 Blood Pressure 126/75 Pulse Oximetry 98 99 99 Oxygen Delivery Method Room Air Room Air Oxygen Flow Rate 0 09/22/21 05:00 Temperature 98.0 F Pulse Rate 75 Respiratory Rate 16 Blood Pressure 134/86 Pulse Oximetry 97 Oxygen Delivery Method Oxygen Flow Rate 0 Oxygen Delivery Method Room Air Oxygen Flow Rate 0 Narrative Exam Narrative: GEN: Somnolent, but does arouse and answer questions, NAD HEENT:NC, Face symmetric CHEST: Respiratory excursions symmetric, CTAB CV: RRR, no M/R/G ABD: Soft, NT/ND, BT present in all 4 quadrants, no organomegaly or masses EXTR: warm, well perfused, no C/C/E to the right lower extremity, left lower extremity reveals some moderate swelling, erythema, and warmth but it appears minimally outside of previous demarcation done at [facility], improved compared to marking was done in our facility last evening SKIN: warm and dry, no rash NEURO: Nonfocal Objective Labs Result Diagrams: 09/21/21 05:20 09/21/21 05:20 Labs: Laboratory Results - last 24 hr 09/21/21 15:40 U Opiates 300ng/mL cut Negative Ur Oxycodone Screen Positive H Urine Methadone Screen Negative Ur Barbiturates Screen Negative U Tricyclic Antidepress Negative Ur Phencyclidine Scrn Negative Ur Amphetamines Screen Positive H U Methamphetamines Scrn Positive H Ur MDMA Scrn (Ecstasy) Negative U Benzodiazepines Scrn Negative Urine Cocaine Screen Negative U Marijuana (THC) Screen Negative [facility] Medical History History of narcotic addiction Methamphetamine use MRSA (methicillin resistant staph aureus) culture positive Surgical History History of breast augmentation Family History Mother Hypertension Brother Bipolar 1 disorder, depressed Social History household members: none Smoking Status: Current every day smoker alcohol intake: current Assessment & Plan Assessment & Plan narrative: 41-year-old female with polysubstance dependence (fentanyl and methamphetamine) use, prior MRSA, admitted last night with left lower extremity cellulitis. Patient had previously been admitted to [facility] but left Against Medical Advice approximately 24 hours later. 1. Left lower extremity cellulitis Patient does have previous history of MRSA. She has multiple healed wounds on her legs bilaterally. It does appear she is improving compared with admission. -continue IV vanco -continue elevation, analgesics as needed. No evidence for DVT. 2. Polysubstance dependence Patient denies presently that she uses though admitted on admission. Will send a urine drug screen for baseline in the event there are further concerns and a repeat is required. She has all of her belongings in the room with her and certainly has had a known history of drug use. She denies IV drug use. 3. Elevated blood pressures [place] to be secondary to an infection. Overall blood pressures are improved. 4. Protein calorie malnutrition Patient is underweight as evidenced by BMI of 18 7 kg. She is homeless. Dietitian consult pending. 5. Tobacco dependence Nicotine patch As needed Code status Full Prophylaxis Lovenox Disposition Continued acute care hospitalization. Anticipate another 24-48 hours hospitalization. Time Spent With Patient Critical Care time: I spent a total of [] minutes of critical care time on this patient's care today; this time is exclusive of procedural time. Quality VTE Deep Vein Thrombosis/Pulmonary Embolism Present on Admission: No
--- NOTE | 2021-09-22 11:38 | DIET.CONS2 ---
Dietary Inpatient Consultation Note Admission Date: 09/21/2021 10:00 41y F admitted with lower leg cellulitis after leaving AMA from [facility] referred to nutrition for malnutrition screening (MNA 9). RD met with pt at bedside at 0900 and brought her breakfast tray of eggs, hashed browns, sausage, and coffee (of which she ate 100%). Pt requested extra cream and sugar. RD noted pt with significant amount of home foods in room including energy drinks, sodas, candy, cookies, brownies of which she appears to be snacking on. Pt with hx of and active use of IVDA- opioids and amphetamines. Pt lives from vehicle, homeless. Partial visual NFPE shows pt with thin frame, hollowed orbitals, numerous scabs on face in various stages of healing. While in stable environment of hospital, pt appears to have good appetite and no trouble eating. Pts malnutrition likely from self-neglect secondary to active IVDU and food and housing insecurity. Diet: 09/20/21 Breakfast General (Regular) Diet Diet Modifications: Nutrition Percent Meal Consumed 100% 09/22/21 10:28 Percent Meal Consumed 75% 09/21/21 20:25 Percent Meal Consumed 25% 09/21/21 10:00 Nutrition Diagnosis: Severe Acute on Chronic Protein Calorie Malnutrition r/t psychological and socioeconomic reasons aeb pt active IVDU with cellulitis, homeless living in vehicle with food insecurity and no ability to store or prepare meals, high intake low nutrient high sugar items, POs have been 50-100% while in structured hospital environment. Interventions: 1. Recc MVI be added to med list to support micronutrient needs for this food insecure patient. Recc MVI with 100% zinc RDI to support numerous scabs in various stages of healing. 2. Recc cessation of substance use and resources for stable housing and food benefits. Monitoring/Evaluation: RD completed brief visit as to not provoke pt as high risk leaving AMA. Will attempt f/u in morning for additional details of pts eating and weight hx, resources. Electronically Signed by: Julieta Napoles 09/22/21 11:38 Clinical Dietitian [address] [id number]
[2021-09-22 12:51] LABS: Vancomycin Trough 14.3 ug/mL (10-20)
[2021-09-22] MEDS: OXYCODONE IR 10 MG TABLET PO (23:55)
[2021-09-23] VITALS: O2SAT 100
[2021-09-23] MEDS: ACETAMINOPHEN 325 MG TABLET 650 MG PO (02:12)
[2021-09-23 04:00] VITALS: O2SAT 100
[2021-09-23] MEDS: VANCOMYCIN 1,000 MG/200 ML PIGGYBACK 200 MG IV ×2 (06:12→12:52)
[2021-09-23 06:33] VITALS: BP 135/87; PULSE 76; RESP 16; TEMP 36.9; O2SAT 96
--- NOTE | 2021-09-23 09:20 | PM.PN.1 ---
Exam Vital Signs (past 8 hours): - 09/23/21 04:00 09/23/21 06:33 Temperature 98.5 F Pulse Rate 76 Respiratory Rate 16 Blood Pressure 135/87 Pulse Oximetry 100 96 Oxygen Delivery Method Room Air Oxygen Flow Rate 0 Oxygen Delivery Method Room Air Oxygen Flow Rate 0 Narrative Exam Narrative: GEN: Somnolent, but does arouse and answer questions, NAD HEENT:NC, Face symmetric CHEST: Respiratory excursions symmetric, CTAB CV: RRR, no M/R/G ABD: Soft, NT/ND, BT present in all 4 quadrants, no organomegaly or masses EXTR: warm, well perfused, no C/C/E to the right lower extremity, left lower extremity reveals some moderate swelling, erythema, and warmth but it appears minimally outside of previous demarcation done at [facility], improved compared to marking was done in our facility last evening SKIN: warm and dry, no rash NEURO: Nonfocal Objective Labs Result Diagrams: 09/21/21 05:20 09/21/21 05:20 Labs: Laboratory Results - last 24 hr 09/22/21 11:35 Vancomycin Trough 14.3 PFSH Medical History History of narcotic addiction Methamphetamine use MRSA (methicillin resistant staph aureus) culture positive Surgical History History of breast augmentation Family History Mother Hypertension Brother Bipolar 1 disorder, depressed Social History household members: none Smoking Status: Current every day smoker alcohol intake: current Assessment & Plan Assessment & Plan narrative: 41-year-old female with polysubstance dependence (fentanyl and methamphetamine) use, prior MRSA, admitted last night with left lower extremity cellulitis. Patient had previously been admitted to [facility] but left Against Medical Advice approximately 24 hours later. 1. Left lower extremity cellulitis Patient does have previous history of MRSA. She has multiple healed wounds on her legs bilaterally. It does appear she is improving compared with admission. -continue IV vanco -continue elevation, analgesics as needed. No evidence for DVT. 2. Polysubstance dependence Patient denies presently that she uses though admitted on admission. Will send a urine drug screen for baseline in the event there are further concerns and a repeat is required. She has all of her belongings in the room with her and certainly has had a known history of drug use. She denies IV drug use. 3. Elevated blood pressures [place] to be secondary to an infection. Overall blood pressures are improved. 4. Protein calorie malnutrition Patient is underweight as evidenced by BMI of 18 7 kg. She is homeless. Dietitian consult pending. 5. Tobacco dependence Nicotine patch As needed Code status Full Prophylaxis Lovenox Disposition Continued acute care hospitalization. Anticipate another 24-48 hours hospitalization. Time Spent With Patient Critical Care time: I spent a total of [] minutes of critical care time on this patient's care today; this time is exclusive of procedural time. Quality VTE Deep Vein Thrombosis/Pulmonary Embolism Present on Admission: No
[2021-09-23 10:00] VITALS: BP 140/82; PULSE 86; RESP 16; TEMP 36.7; O2SAT 97
--- NOTE | 2021-09-23 16:06 | PM.DS.1 ---
History of Present Illness History of Present Illness Date Patient Seen: 09/23/21 Time Patient Seen: 16:00 Chief complaint: Infection Lower Left Leg Narrative: Ruby Staley is a pleasant 41-year-old female with a history fentanyl, methamphetamine use, cellulitis, and MRSA, presented to the ED for left lower leg swelling redness and pain.? The patient reports that approximately 2 weeks ago her left lower leg began showing signs of increasing redness swelling warmth weeping and pain, she reports that she was incoherent for approximately 2 days prior to going to [facility].? She also noted swelling and inflammation of the right hand index nail bed matrix (still erythemic and inflammed), and an abscess to the left breast which is now scabbed over and healing.? Patient went to [facility] was admitted but states that she left Against Medical Advice as she felt she was not being treated well.? Patient believes she received possibly 1 dose of IV antibiotics prior to leaving Against Medical Advice.? Patient denies any insect bites, injury, or trauma to the left lower leg, or specific abscess.? Patient's skin appears possible self picking with various stages of healing. Though insect bites are possible due to her living situation. Patient is currently homeless and living out of her truck, unemployed, and last used fentanyl yesterday, notes a distant history of Percocet addiction, and methamphetamine use.? She denies any alcohol intake and smokes a half a pack per day times 30 years.? Patient denies IV drug use.? Patient denies any fever, body aches, chills, abdominal pain, nausea, vomiting, diarrhea, chest pain, shortness of breath, or headache.? Patient does complain pain to the left lower leg ,erythema, warmth, and inflammation begins just below the knee and encompasses the entire lower leg and foot.? Patient denies any other medical history and takes no medications.? Patient notes that she is allergic to Bactrim which resulted in a retinal hemorrhage. Upon admit patient met sepsis criteria although not septic temp 98.3?, BP 140/103, HR 117, R 22, O2 saturation 96% on room air.? Patient is stable not symptomatic and does not appear to be septic or in septic shock CBC, CMP, lactate, lipase, and procalcitonin are all within normal limits.? Patient's chest x-ray is negative for any cardiopulmonary processes.? ED reported that the patient's lower left extremity CT from 09/18 demonstrated Diffuse soft tissue edema and anterior gooden, ankle as well as the dorsal posterior plantar aspect of the foot consistent with cellulitis.? Have requested records diagnostic and laboratory findings from [facility].? Blood cultures were drawn in ED. patient to be admitted for left lower leg cellulitis. Discharge Providers Provider Date of admission: 09/21/21 10:00 Discharge Date: 09/23/21 Consults: 09/20/21 20:49 Consult to Dietitian, Adult Routine Comment: Reason For Exam: BMI 17.1 09/20/21 23:57 Consult to HOSPICE RN - Clinical Law Professor Routine Comment: pt is homeless, living in truck Discharge provider: Alden Miguel DO Summary Hospital Course Discharge Diagnosis: 1. Left lower extremity cellulitis Patient does have previous history of MRSA.? She has multiple healed wounds on her legs bilaterally.? It does appear she is improving compared with admission.?Blood and urine cultures negative. -received 4 days of IV vanco and discharged on 10 days of linezolid to finish 2 week course -LE swelling, erythema and pain improved with abx 2. Polysubstance dependence Patient denies presently that she uses though admitted on admission.? Will send a urine drug screen for baseline in the event there are further concerns and a repeat is required.? She has all of her belongings in the room with her and certainly has had a known history of drug use.? She denies IV drug use. 3. Elevated blood pressures [place] to be secondary to an infection.? Overall blood pressures are improved. 4. Severe acute on chronic protein calorie malnutrition Patient is underweight as evidenced by BMI of 18.7.? She is homeless. -Per beater boss consult: 1. [facility] MVI be added to med list to support micronutrient needs for this food insecure patient. Rec MVI with 100% zinc RDI to support numerous scabs in various stages of healing. 2. [facility] cessation of substance use and resources for stable housing and food benefits. Monitoring/Evaluation: RD completed brief visit as to not provoke pt as high risk leaving AMA. Will attempt f/u in morning for additional details of pts eating and weight hx, resources. 5. Tobacco dependence Nicotine patch As needed Hospital Course: 41-year-old female with polysubstance dependence (fentanyl and methamphetamine) use, prior MRSA, admitted last night with left lower extremity cellulitis.? Patient had previously been admitted to [facility] but left Against Medical Advice approximately 24 hours later. Received 4 days of IV vanco with improvement of her cellulitis and was discharged on additional 10 days of linezolid to finish 2 week course. Exam Vital Signs (past 8 hours): Oxygen Delivery Method Room Air Oxygen Flow Rate 0 Narrative Exam Narrative: GEN: Alert and oriented, NAD HEENT:NC, Face symmetric CHEST: Respiratory excursions symmetric, CTAB CV: RRR, no M/R/G ABD: Soft, NT/ND, BT present in all 4 quadrants, no organomegaly or masses EXTR: warm, well perfused, no C/C/E to the right lower extremity, left lower extremity reveals improved swelling, erythema, and warmth SKIN: warm and dry, no rash NEURO: Nonfocal Objective Labs Result Diagrams: 09/21/21 05:20 09/21/21 05:20 [facility] Medical History History of narcotic addiction Methamphetamine use MRSA (methicillin resistant staph aureus) culture positive Surgical History History of breast augmentation Family History Mother Hypertension Brother Bipolar 1 disorder, depressed Social History household members: none Smoking Status: Current every day smoker alcohol intake: current Discharge Plan Discharge Plan Patient Disposition: Home Provider Discharge Comment: You were admitted for a action which improved with IV antibiotics. You will now need to finish a course of oral antibiotics for the next 10 days to fully treat the infection. I have sent you with a prescription for this antibiotic pill called Linezolid as well as a coupon to get it for $40 at [email or web address]. Discharge orders & Medications Prescriptions: New linezolid 600 mg tablet 600 mg PO Q12H 10 Days Qty: 20 0RF Follow up/Referrals: Miscellaneous,Doctor, [Non-Staff] - Visit Report/Discharge Packet Instructions: DI for Cellulitis -- Adult Quality VTE Deep Vein Thrombosis/Pulmonary Embolism Present on Admission: No
--- NOTE | 2021-09-23 16:14 | PC.NURSE ---
Discharge Note Patient A&O, VSS, RA, no complaints of pain/discomfort. Discharge packet reviewed with patient, all questions/concerns addressed. PIV/TELE discontinued. Patient given prescriptions for antibiotics, along with discharge packet. Patient given cart to pack all belongings and able to dress self. Patient taken down via wheelchair to POV.
== END 2021-09-23 16:00 | disposition home or self-care (01) | DRG 383 ==
LOC: ED 20:25 → AC 09-21 14:28
PROVIDERS: Emergency Medicine; Family Medicine; Admitting Provider Nurse Practitioner Family; Emergency Provider Registered Nurse; Referring Provider Nurse Practitioner Family; Visit Provider Nurse Practitioner Family
DX: L03.116 Cellulitis of left lower limb (principal); Z68.1 Body mass index [BMI] 19.9 or less, adult; F11.20 Opioid dependence, uncomplicated; E43 Unspecified severe protein-calorie malnutrition; F15.20 Other stimulant dependence, uncomplicated; F17.210 Nicotine dependence, cigarettes, uncomplicated; Z20.822 Contact with and (suspected) exposure to COVID-19; Z59.00 Homelessness unspecified
CPT/HCPCS: 36415; 71045; 80053; 80202; 80305; 81001; 83605; 83690; 83735; 84145; 85025; 87040; 87086; 87635; 99283; 99284; C9803; G0378

== ENCOUNTER 2021-09-26 21:31 | Observation (INO) | payer OTHER, MEDICAID, SELFPAY ==
[2021-09-26 21:34] VITALS: BP 141/89; PULSE 107; RESP 18; TEMP 36.6; O2SAT 100; BMI 17.1
--- NOTE | 2021-09-26 21:44 | DI.RAD.S_ITS ---
PROCEDURE: XR CHEST 1V INDICATIONS: suspected sepsis TECHNIQUE: One view of the chest was acquired. COMPARISON: [facility], CR, XR CHEST 1V, 09/20/2021, 18:11. FINDINGS: Surgical changes and devices: None. Lungs and pleura: Lungs are clear. No pleural effusions or pneumothorax. Mediastinum: Mediastinal contours appear normal. Heart size is normal. Bones and chest wall: No suspicious bony lesions. Overlying soft tissues appear unremarkable. IMPRESSION: 1. No acute cardiopulmonary disease. Dictated by: Arian Conner M.D. on 09/26/2021 at 23:36 Approved by: Arian Conner M.D. on 09/26/2021 at 23:37
--- NOTE | 2021-09-26 21:55 | ED.EXTPRO ---
HPI - Extremity Problem General Chief complaint: Extremity Problem,Nontraumatic Stated complaint: MRSA Time Seen by Provider: 09/26/21 21:47 Source: patient Mode of arrival: Ambulatory History of Present Illness HPI Narrative: 41-year-old female smoker with history of illicit drug use and prior skin infections presents with a chief complaint of rapid worsening of circumferential redness, pain and swelling to her left lower leg. She had just been admitted for cellulitis and was doing quite well on vancomycin and was discharged on a 10 day course of linezolid. She states she is been taking those medications as prescribed, however over the past 24 hours or so she is had rapid progression as described. She is had subjective fever and chills but denies any nausea or vomiting. She denies chest pain or shortness of breath. She denies abdominal pain or diarrhea. She has no dysuria, frequency or urgency. She denies any recent IV drug abuse. Related Data Previous Rx's Medication Instructions Recorded linezolid 600 mg tablet 600 mg PO Q12H 10 days #20 tabs 09/23/21 Allergies Allergy/AdvReac Type Severity Reaction Status Date / Time sulfamethoxazole Allergy Verified 09/26/21 21:41 [From Bactrim] trimethoprim [From Bactrim] Allergy Verified 09/26/21 21:41 Review of Systems Review of Systems Narrative: GENERAL: Denies chills, fatigue, malaise, fever, sweats. HEENT: Denies sinus pain, ear pain, sore throat, difficulty swallowing, dizziness. RESPIRATORY: Denies dyspnea, cough, wheezing, hemoptysis, sputum. CARDIOVASCULAR: Denies chest pain, palpitations, orthopnea, edema, GASTROINTESTINAL: Denies nausea, vomiting, abdominal pain, diarrhea, constipation, melena. : Denies dysuria, frequency, incontinence, hematuria, urinary retention. MUSCULOSKELETAL: d see HPI n SKIN: See HPI NEUROLOGIC: Denies weakness, headache, numbness, change in speech, confusion, seizures, incoordination. PSYCHIATRIC: No concerning psychosocial issues. 12 point review of systems is negative except for those stated above Patient History Medical History History of narcotic addiction Methamphetamine use MRSA (methicillin resistant staph aureus) culture positive Surgical History History of breast augmentation Family History Mother Hypertension Brother Bipolar 1 disorder, depressed Social History household members: none Smoking Status: Current every day smoker alcohol intake: former Smoking Status: Current every day smoker alcohol intake frequency: 0-2 drinks per day Substance Use Type: former substance user and marijuana Exam Narrative Exam Narrative: GENERAL: [41] year old patient appears stated age. Well-developed patient, in mild distress. HEAD: Atraumatic. Normocephalic. EYES: Pupils equal round and reactive. Extraocular motions intact. No scleral icterus. No injection or drainage. ENT: Nose without bleeding, purulent drainage. Throat without erythema, tonsillar hypertrophy or exudate. Airway patent. NECK: Trachea midline. Non tender CARDIOVASCULAR: Regular rate and rhythm without murmurs, gallops, or rubs. RESPIRATORY: Clear to auscultation. Breath sounds equal bilaterally. No wheezes, rales, or rhonchi. GASTROINTESTINAL: Abdomen soft, non-tender, nondistended. EXTREMITIES: Left lower extremity with warmth and circumferential erythema from the dorsum of the foot extending all the way upper lower extremity to just below the knee.. BACK: Nontender without deformity or crepitance. No flank tenderness. NEURO: AOx3. SKIN: Otherwise No rash or erythema of visible areas Initial Vital Signs Initial Vital Signs: Vital Signs Temperature 97.9 F 09/26/21 21:34 Pulse Rate 107 H 09/26/21 21:34 Respiratory Rate 18 09/26/21 21:34 Blood Pressure 141/89 H 09/26/21 21:34 Pulse Oximetry 100 09/26/21 21:34 Oxygen Delivery Method 09/26/21 21:34 Course Orders Ordered: ED Orders 09/26/21 21:44 XR chest 1V Stat RT Consult Eval and Treat NOW 09/26/21 22:06 Complete Blood Count AUTO DIFF Stat Comprehensive Metabolic Panel Stat Lactate (Lactic Acid) Stat Lipase Stat Procalcitonin Stat 09/26/21 22:13 EKG-12 Lead Stat 09/26/21 22:32 Blood Culture Stat 09/26/21 23:40 COVID19 -Nasal RAPID/Pre-Proc Stat 08/06/22 Basic Metabolic Panel Routine Complete Blood Count AUTO DIFF Routine Hydrocodone Bitart/Acetaminophen (Hydrocodone/Acet 5/325 Tablet) 1 tab PO Q4HR PRN PRN Reason: Pain, Moderate (4-6) Ceftriaxone Sodium 1,000 mg/ (Sodium Chloride) 100 mls @ 200 mls/hr IV Q24H [facility] Sodium Chloride (Normal Saline 0.9%) 1,000 mls @ 100 mls/hr IV CONT LAURY Last Admin: 09/27/21 02:19 Dose: 100 mls/hr Documented By: ELHAM Vancomycin HCl (Vancomycin) 1,000 mg in 200 mls @ 200 mls/hr IV Q12H [facility] Vancomycin HCl (Vancomycin Per Pharmacy) 1 request MISC NOW ONE Stop: 09/27/21 01:29 Discontinued Medications Enoxaparin Sodium (Enoxaparin 40 Mg/0.4 Ml Syringe) 40 mg SUBCUT DAILY [facility] Sodium Chloride (Normal Saline 0.9%) 1,000 mls @ 1,000 mls/hr IV BOLUS ONE Stop: 09/26/21 22:43 Last Infusion: 09/26/21 23:25 Dose: 0 mls/hr Documented By: Admin: 09/26/21 22:13 Dose: 1,000 mls/hr Documented By: MUNDO Vancomycin HCl (Vancomycin) 1,250 mg in 250 mls @ 250 mls/hr IV NOW ONE Stop: 09/27/21 00:04 Last Infusion: 09/27/21 00:20 Dose: 0 mls/hr Documented By: Admin: 09/26/21 23:23 Dose: 250 mls/hr Documented By: CLAIRE Sodium Chloride (Normal Saline 0.9%) 1,000 mls @ 100 mls/hr IV CONT LAURY Last Admin: 09/27/21 00:29 Dose: Not Given Documented By: ELHAM Ceftriaxone Sodium 1,000 mg/ (Sodium Chloride) 100 mls @ 200 mls/hr IV DAILY [facility] Vital Signs Vital signs: Vital Signs - 8 hr 09/26/21 21:34 Temperature 97.9 F Pulse Rate 107 H Respiratory Rate 18 Blood Pressure 141/89 H Pulse Oximetry 100 Oxygen Delivery Method Room Air MDM - Extremity (Nontraumatic) Lab Data Result diagrams: 09/26/21 22:06 09/26/21 22:06 Labs: Lab Results 09/26/21 09/26/21 09/26/21 Range/Units 22:06 22:06 22:06 WBC 9.7 (4.5-11.0) X10^3/uL RBC 4.50 (4.0-5.2) X10^6/uL Hgb 13.7 (12.0-16.0) g/dL Hct 40.0 (36-46) % MCV 88.7 (80-100) fL MCH 30.4 (26-34) PG MCHC 34.2 (30-36) % RDW 13.5 (11.6-14.8) % Plt Count 429 H (150-400) X10^3/uL Neut % (Auto) 78.3 H (50-75) % Lymph % (Auto) 14.7 L (25-40) % [place] % (Auto) 5.7 (3-14) % Eos % (Auto) 0.8 L (2-4) % Baso % (Auto) 0.5 (0-2) % Neut # (Auto) 7600 H (2076-9006) /uL Lymph # (Auto) 1400 (7110-9145) /uL [place] # (Auto) 600 (0-900) /uL Eos # (Auto) 100 (0-450) /uL Baso # (Auto) 100 (0-100) /uL Sodium 140 (137-145) mmol/L Potassium 4.0 (3.4-5.1) mmol/L Chloride 98 (98-107) mmol/L Carbon Dioxide 31 (22-32) mmol/L BUN 16 (7-17) mg/dL Creatinine 0.68 (0.52-1.04) mg/dL Estimated GFR > 60 (>60) mL/min BUN/Creatinine Ratio 23.5 H (6-22) Glucose 81 (70-100) mg/dL Lactate 1.4 (0.7-2.1) mmol/L Calcium 9.9 (8.4-10.2) mg/dL Total Bilirubin 0.3 (0.2-1.3) mg/dL AST 34 (14-36) IU/L ALT 23 (<35) IU/L Alkaline Phosphatase 96 (38-126) U/L Total Protein 9.6 H (6.3-8.2) g/dL Albumin 4.8 (3.5-5.0) g/dL Globulin 4.8 H (1.7-4.1) g/dL Albumin/Globulin Ratio 1.0 (1.0-2.8) Lipase 27 (23-300) U/L Procalcitonin 0.05 (<0.5) ng/mL MDM Narrative Medical decision making narrative: Patient with recent hospitalization for lower extremity cellulitis had been doing well when admitted but rapidly worsened as an outpatient. She is failed outpatient therapy and will require hospitalization for stabilization of her condition Discharge Plan Departure Patient Disposition: Admitted As Inpatient Clinical Impression: Cellulitis, Failure of outpatient treatment Admit Date/Time: 09/26/21 23:15 Admit Provider: Alvina Bhandari
[2021-09-26] MEDS: SODIUM CHLORIDE 0.9% 1,000 ML 1000 ML IV (22:13)
[2021-09-26 22:14] LABS: Add Manual Diff / Slide Review NO; Basophils Absolute Auto 100 /uL (0-100); Basophils Percent Auto 0.5 % (0-2); Eosinophils Absolute Auto 100 /uL (0-450); Eosinophils Percent Auto 0.8 % (2-4); Hemoglobin 13.7 g/dL (12.0-16.0); Lymphocytes Absolute Auto 1400 /uL (1100-4500); Lymphocytes Percent Auto 14.7 % (25-40); Mean Corpuscular HGB Conc 34.2 % (30-36); Mean Corpuscular Hemoglobin 30.4 PG (26-34); Mean Corpuscular Volume 88.7 fL (80-100); Monocytes Absolute Auto 600 /uL (0-900); Monocytes Percent Auto 5.7 % (3-14); Neutrophils Absolute Auto 7600 /uL (1500-7000); Neutrophils Percent Auto 78.3 % (50-75); Platelet Count 429 X10^3/uL (150-400); Red Cell Distribution Width 13.5 % (11.6-14.8); White Blood Cell Count 9.7 X10^3/uL (4.5-11.0)
[2021-09-26 22:25] LABS: Alanine Aminotransferase 23 IU/L (<35); Albumin 4.8 g/dL (3.5-5.0); Alkaline Phosphatase 96 U/L (38-126); Aspartate Aminotransferase 34 IU/L (14-36); BUN Creatinine Ratio 23.5 (6-22); Bilirubin Total 0.3 mg/dL (0.2-1.3); Blood Urea Nitrogen 16 mg/dL (7-17); Calcium 9.9 mg/dL (8.4-10.2); Carbon Dioxide 31 mmol/L (22-32); Chloride 98 mmol/L (98-107); Estimated Glomerular Filt Rate > 60 mL/min (>60); Globulin 4.8 g/dL (1.7-4.1); Glucose 81 mg/dL (70-100); HEMOLYSIS 37 (0-50); Lactate (Lactic Acid) 1.4 mmol/L (0.7-2.1); Lipase 27 U/L (23-300); Sodium 140 mmol/L (137-145); Total Protein 9.6 g/dL (6.3-8.2)
[2021-09-26 22:41] LABS: Procalcitonin 0.05 ng/mL (<0.5)
--- NOTE | 2021-09-26 23:17 | PM.HP.1 ---
History of Present Illness History of Present Illness Date Patient Seen: 09/26/21 Chief complaint: MRSA Narrative: This is a 41-year-old female with a history of methamphetamine and narcotic use who returns after a recent hospital admission for IV antibiotic treatment of cellulitis with Vancomycin now with a flare in the left leg cellulitis despite 2 days of PO Linezolid. She tells me that she moved from [place] several years ago and does not have a local primary care physician. She was hospitalized for 4 days on vancomycin last week with reported significant improvements in the appearance of the left leg which has now recurred. She had admitted at the last admission to the use of fentanyl regularly. Patient History Medical History History of narcotic addiction Methamphetamine use MRSA (methicillin resistant staph aureus) culture positive Surgical History History of breast augmentation Family & Social History Family History Mother Hypertension Brother Bipolar 1 disorder, depressed Social History: household members none Safety & Behavioral: Feels Safe in Current Yes Environment Tobacco & Substance use: Tobacco type cigarettes Smoking Status Current every day smoker alcohol intake current alcohol intake frequency 0-2 drinks per day Substance Use Type marijuana,former substance user Meds Home Medications and Allergies Home Medications Medication Instructions Recorded Confirmed Type linezolid 600 mg tablet 600 mg PO Q12H 10 days #20 tabs 09/23/21 Rx Allergies Allergy/AdvReac Type Severity Reaction Status Date / Time sulfamethoxazole Allergy Verified 09/26/21 21:41 [From Bactrim] trimethoprim [From Bactrim] Allergy Verified 09/26/21 21:41 Review of Systems Review of Systems Narrative: Positive for left leg warmth and pain Negative for fevers, chills, sweats, nausea, vomiting, abdominal pain, chest pain, coughing, shortness of breath, dysuria, bleeding, joint swelling, seizures, headaches, sore throat. In Exam Vital Signs (past 8 hours): - 09/26/21 21:34 Temperature 97.9 F Pulse Rate 107 H Respiratory Rate 18 Blood Pressure 141/89 H Pulse Oximetry 100 Oxygen Delivery Method Room Air Oxygen Delivery Method Room Air Narrative Exam Narrative: she is alert and oriented x3. She is in mild distress from left leg infection pain Pupils are equally round reactive to light and accommodation. Extraocular muscles are intact. Sclerae are pink and nonicteric. Very colorful makeup around her eyes Throat looks normal No lymph nodes are felt head, neck, supraclavicular area There is no thyromegaly JVD is less than 6 cm No carotid bruits are heard Heart is regular rate and rhythm without murmur Lungs are clear to auscultation bilaterally Abdomen is soft, bowel sounds positive, nontender, no organomegaly. Neurological exam: Motor function is 5/5 throughout There is no tremor Cranial nerves 2-12 test intact Skin: Right leg appears normal Left leg from knee to the ankle is diffusely pink, warm to the touch and particularly tender over the dorsum of the foot and the ankle. No signs of abscess or compartment syndrome today. There are multiple picking douglass and scars typical of methamphetamine /skin popping all over her body. Objective Labs Result Diagrams: 09/26/21 22:06 09/26/21 22:06 Labs: Laboratory Results - last 24 hr 09/26/21 09/26/21 09/26/21 22:06 22:06 22:06 WBC 9.7 RBC 4.50 Hgb 13.7 Hct 40.0 MCV 88.7 MCH 30.4 MCHC 34.2 RDW 13.5 Plt Count 429 H Neut % (Auto) 78.3 H Lymph % (Auto) 14.7 L [place] % (Auto) 5.7 Eos % (Auto) 0.8 L Baso % (Auto) 0.5 Neut # (Auto) 7600 H Lymph # (Auto) 1400 [place] # (Auto) 600 Eos # (Auto) 100 Baso # (Auto) 100 Sodium 140 Potassium 4.0 Chloride 98 Carbon Dioxide 31 BUN 16 Creatinine 0.68 Estimated GFR > 60 BUN/Creatinine Ratio 23.5 H Glucose 81 Lactate 1.4 Calcium 9.9 Total Bilirubin 0.3 AST 34 ALT 23 Alkaline Phosphatase 96 Total Protein 9.6 H Albumin 4.8 Globulin 4.8 H Albumin/Globulin Ratio 1.0 Lipase 27 Procalcitonin 0.05 Assessment & Plan Assessment & Plan narrative: This is a 41-year-old female with a history of methamphetamine and narcotic use who returns after a recent hospital admission for IV antibiotic treatment of cellulitis with Vancomycin now with a flare in the left leg cellulitis despite PO Linezolid. Left leg cellulitis, present on admission. Active. -She already completed 4 days of IV vancomycin with improving appearance so will resume IV vancomycin with plan for full course of treatment as an inpatient due to recurrence of infection on oral linezolid. -add ceftriaxone for possible strep although this appears more likely to be Staph by typical characteristics. - the patient has an unhygienic living situation in her truck which undoubtedly contributes as does her admitted use of fentanyl and multiple picking lesions all over her body. Narcotic Addiction, present on admission. Active. -Admitted to regular Fentanyl use at her last admission a week ago -High risk to leave AMA Unclear backup decision maker Silvinox for DVT prevention Time Spent With Patient Critical Care time: I spent a total of [] minutes of critical care time on this patient's care today; this time is exclusive of procedural time.
[2021-09-26] MEDS: VANCOMYCIN 1,250 MG/250 ML PIGGYBACK 250 MG IV (23:23)
[2021-09-26 23:31] VITALS: BMI 17.1
[2021-09-26 23:55] VITALS: BP 138/90; PULSE 85; RESP 18; TEMP 37.1; O2SAT 100
[2021-09-27 00:07] LABS: COVID19 -Nasal RAPID Negative (Negative)
[2021-09-27] MEDS: SODIUM CHLORIDE 0.9% 1,000 ML 100 ML IV ×2 (02:19→14:34)
[2021-09-27 05:54] VITALS: BP 108/72; PULSE 70; RESP 16; TEMP 35.9; O2SAT 97
[2021-09-27 06:01] LABS: Add Manual Diff / Slide Review NO; Basophils Absolute Auto 100 /uL (0-100); Basophils Percent Auto 1.1 % (0-2); Eosinophils Absolute Auto 100 /uL (0-450); Eosinophils Percent Auto 2.1 % (2-4); Hematocrit 34.6 % (36-46); Hemoglobin 11.6 g/dL (12.0-16.0); Lymphocytes Absolute Auto 1200 /uL (1100-4500); Lymphocytes Percent Auto 25.7 % (25-40); Mean Corpuscular HGB Conc 33.5 % (30-36); Mean Corpuscular Hemoglobin 29.9 PG (26-34); Mean Corpuscular Volume 89.3 fL (80-100); Monocytes Absolute Auto 500 /uL (0-900); Monocytes Percent Auto 10.2 % (3-14); Neutrophils Absolute Auto 2900 /uL (1500-7000); Neutrophils Percent Auto 60.9 % (50-75); Platelet Count 360 X10^3/uL (150-400); Red Blood Cell Count 3.87 X10^6/uL (4.0-5.2); Red Cell Distribution Width 13.3 % (11.6-14.8); White Blood Cell Count 4.7 X10^3/uL (4.5-11.0)
[2021-09-27 06:14] LABS: Blood Urea Nitrogen 13 mg/dL (7-17); Calcium 8.5 mg/dL (8.4-10.2); Carbon Dioxide 30 mmol/L (22-32); Chloride 103 mmol/L (98-107); Estimated Glomerular Filt Rate > 60 mL/min (>60); Glucose 86 mg/dL (70-100); HEMOLYSIS < 15 (0-50); Potassium 4.2 mmol/L (3.4-5.1); Sodium 136 mmol/L (137-145)
[2021-09-27] MEDS: VANCOMYCIN 1,000 MG/200 ML PIGGYBACK 200 MG IV ×2 (08:26→15:36)
[2021-09-27] MEDS: HYDROCODONE/ACET 5/325 TABLET 1 TAB PO (08:38)
[2021-09-27 08:48] LABS: Appearance Urine UA CLEAR; Bilirubin Urine UA NEGATIVE (NEGATIVE); Color Urine UA YELLOW; Glucose Urine UA NEGATIVE (Negative); Ketones Urine UA NEGATIVE (NEGATIVE); Leukocyte Esterase Urine UA TRACE (NEGATIVE); Nitrite Urine UA NEGATIVE (Negative); Occult Blood Urine UA NEGATIVE (Negative); Protein Urine UA NEGATIVE (Negative); Specific Gravity Urine UA 1.015 (1.000-1.035); Urobilinogen Urine UA 0.2 E.U./dL (0.2)
[2021-09-27 08:49] LABS: Pregnancy Test Urine Negative (Negative)
[2021-09-27 08:54] LABS: Bacteria Urine Occasional (0-1); Culture Indicated Urine Cult Not Indicated; RBC Urine None Seen (0-5/HPF); Squamous Epithelial Cell Urine 5-10 /HPF (0-5/HPF); WBC Urine 5-10/HPF (0-5/HPF)
[2021-09-27 09:00] VITALS: BP 128/90; PULSE 95; RESP 14; TEMP 36.2; O2SAT 95
[2021-09-27] MEDS: cefTRIAXone 1,000 MG in SODIUM CHLORIDE 0.9% 100 ML 200 MG IV (10:13)
[2021-09-27 13:00] VITALS: BP 120/65; PULSE 85; RESP 14; TEMP 36.4; O2SAT 98
--- NOTE | 2021-09-27 14:04 | P.PN_ITS ---
Subjective Subjective Date Patient Seen: 09/27/21 Interval history: 41 year old female admitted for LLE cellulitis. Improved slightly today. Denies fever, chills, chest pain, nausea, shortness of breath. Area continues to be quite painful. Exam Vital Signs (past 8 hours): - 09/27/21 09:00 09/27/21 13:00 Temperature 97.1 F L 97.6 F Pulse Rate 95 H 85 Respiratory Rate 14 14 Blood Pressure 128/90 120/65 Pulse Oximetry 95 98 Oxygen Flow Rate 0 0 Oxygen Delivery Method Room Air Oxygen Flow Rate 0 Narrative Exam Narrative: General:? Patient is disheveled but in heavy makeup, no acute distress, somnol ent but arousable Chest:? Normal AP diameter and contour without kyphoscoliosis, no tachypnea, equal chest rise bilaterally. Lungs:? CTA b/l no wheezing rhonchi or rales. Poor effort. Cardio:?RRR no m/r/g. Abdomen: S NT ND. No CVA tenderness. Musculoskeletal:? Muscle strength and tone are equal within normal limits, no deformity. Extremities: No joint effusions. No cyanosis or clubbing. LLE edema with skin findings noted below. Skin:?LLE erythema and warmth with edema. Tender. Extends from her L foot proximally past her ankle to lower calf. Circumferential dull erythema. Neuro:? Alert and orientated x3,?but quite somnolent today. sensation to touch intact in all extremities, no gross deficits noted of cranial nerves. Objective Labs Result Diagrams: 09/27/21 05:37 09/27/21 05:37 Labs: Laboratory Results - last 24 hr 09/26/21 09/26/21 09/26/21 22:06 22:06 22:06 WBC 9.7 RBC 4.50 Hgb 13.7 Hct 40.0 MCV 88.7 MCH 30.4 MCHC 34.2 RDW 13.5 Plt Count 429 H Neut % (Auto) 78.3 H Lymph % (Auto) 14.7 L [place] % (Auto) 5.7 Eos % (Auto) 0.8 L Baso % (Auto) 0.5 Neut # (Auto) 7600 H Lymph # (Auto) 1400 [place] # (Auto) 600 Eos # (Auto) 100 Baso # (Auto) 100 Sodium 140 Potassium 4.0 Chloride 98 Carbon Dioxide 31 BUN 16 Creatinine 0.68 Estimated GFR > 60 BUN/Creatinine Ratio 23.5 H Glucose 81 Lactate 1.4 Calcium 9.9 Total Bilirubin 0.3 AST 34 ALT 23 Alkaline Phosphatase 96 Total Protein 9.6 H Albumin 4.8 Globulin 4.8 H Albumin/Globulin Ratio 1.0 Lipase 27 Procalcitonin 0.05 Urine Color Urine Appearance Urine pH Ur Specific [place] Urine Protein Urine Glucose (UA) Urine Ketones Urine Occult Blood Urine Nitrate Urine Bilirubin Urine Urobilinogen Ur Leukocyte Esterase Urine RBC Urine WBC Ur Squamous Epith Cells Urine Bacteria Ur Culture Indicated? Urine Test SARS-CoV-2 (PCR) 09/26/21 09/27/21 09/27/21 23:40 00:33 05:37 WBC 4.7 D RBC 3.87 L Hgb 11.6 L Hct 34.6 L MCV 89.3 MCH 29.9 MCHC 33.5 RDW 13.3 Plt Count 360 Neut % (Auto) 60.9 Lymph % (Auto) 25.7 [place] % (Auto) 10.2 Eos % (Auto) 2.1 Baso % (Auto) 1.1 Neut # (Auto) 2900 Lymph # (Auto) 1200 [place] # (Auto) 500 Eos # (Auto) 100 Baso # (Auto) 100 Sodium Potassium Chloride Carbon Dioxide BUN Creatinine Estimated GFR BUN/Creatinine Ratio Glucose Lactate Calcium Total Bilirubin AST ALT Alkaline Phosphatase Total Protein Albumin Globulin Albumin/Globulin Ratio Lipase Procalcitonin Urine Color Urine Appearance Urine pH Ur Specific [place] Urine Protein Urine Glucose (UA) Urine Ketones Urine Occult Blood Urine Nitrate Urine Bilirubin Urine Urobilinogen Ur Leukocyte Esterase Urine RBC Urine WBC Ur Squamous Epith Cells Urine Bacteria Ur Culture Indicated? Urine Test Negative SARS-CoV-2 (PCR) Negative 09/27/21 09/27/21 05:37 08:43 WBC RBC Hgb Hct MCV MCH MCHC RDW Plt Count Neut % (Auto) Lymph % (Auto) [place] % (Auto) Eos % (Auto) Baso % (Auto) Neut # (Auto) Lymph # (Auto) [place] # (Auto) Eos # (Auto) Baso # (Auto) Sodium 136 L Potassium 4.2 Chloride 103 Carbon Dioxide 30 BUN 13 Creatinine 0.62 Estimated GFR > 60 BUN/Creatinine Ratio 21.0 Glucose 86 Lactate Calcium 8.5 Total Bilirubin AST ALT Alkaline Phosphatase Total Protein Albumin Globulin Albumin/Globulin Ratio Lipase Procalcitonin Urine Color Yellow Urine Appearance Clear Urine pH 7.0 Ur Specific [place] 1.015 Urine Protein Negative Urine Glucose (UA) Negative Urine Ketones Negative Urine Occult Blood Negative Urine Nitrate Negative Urine Bilirubin Negative Urine Urobilinogen 0.2 Ur Leukocyte Esterase Trace H Urine RBC None seen Urine WBC 5-10/hpf H Ur Squamous Epith Cells 5-10 /hpf H Urine Bacteria Occasional (0-1) Ur Culture Indicated? Cult not indicated Urine Test SARS-CoV-2 (PCR) PFSH Medical History History of narcotic addiction Methamphetamine use MRSA (methicillin resistant staph aureus) culture positive Surgical History History of breast augmentation Family History Mother Hypertension Brother Bipolar 1 disorder, depressed Social History household members: none Smoking Status: Current every day smoker alcohol intake: former Assessment & Plan Assessment & Plan narrative: This is a 41-year-old female with a history of methamphetamine and narcotic use who returns after a recent hospital admission for IV antibiotic treatment of cellulitis with Vancomycin now with a flare in the left leg cellulitis despite PO Linezolid. 1. Left leg cellulitis, present on admission. Active. -She already completed 4 days of IV vancomycin with improving appearance, discharged on Linezolid with recurrence. Will continue vancomycin and ceftriaxone given failure of outpatient treatment. -check LE ultrasound to r/o DVT given recurrence, and LE swelling. 2. Narcotic Addiction, present on admission. Active. -Admitted to regular Fentanyl use at her last admission a week ago -High risk to leave AMA Time Spent With Patient Critical Care time: I spent a total of [] minutes of critical care time on this patient's care today; this time is exclusive of procedural time.
--- NOTE | 2021-09-27 14:13 | DI.US.S_ITS ---
PROCEDURE: US PERIPH VENOUS LOW EXTREM LT INDICATIONS: r/o DVT TECHNIQUE: Real-time imaging, as well as color and pulse Doppler interrogation, were performed of the lower extremity deep veins from the inguinal ligament to the popliteal fossa. COMPARISON: None. FINDINGS: The common femoral, femoral and popliteal veins are normally compressible, and free of intraluminal thrombus. Color and pulse Doppler demonstrate normal phasic intraluminal flow. There is normal augmentation response to distal compression maneuver. IMPRESSION: No DVT found. Dictated by: Chilango Crawford M.D. on 09/27/2021 at 23:04 Approved by: Chilango Crawford M.D. on 09/27/2021 at 23:04
--- NOTE | 2021-09-27 16:16 | CM.DANOTE ---
Initial DCP Assessment Note Patient is a 41 yo female, currently homeless, history of methamphetamine and narcotic use, returns to the ER after a recent hospital admission for IV antibiotic treatment of cellulitis with Vancomycin, presents with a flare in the left leg cellulitis, failed outpatient po abx Primary Payor is 1)[employer] 2)Medicaid. According to assessment completed 09.21.21: patient reported that she plans to return to her truck when medically stable. Patient does receive funding from the [employer] for housing but reports she has not been able to find anything? Patient has 2 dogs that she is not willing to part with. Patient reports dogs are currently safe and not left alone in truck. Patient reports she gets about $900.00 a month for housing. Met w/patient this afternoon to introduce self and role. Personal Bags and junk food strewn across patient's room. Patient keeps eyes closed throughout this brief visit, appears and sounds agitated at mention of this CANTEEN ATTENDANT's title. Patient states she does not want to talk with this CANTEEN ATTENDANT, states she is agreeable to talking with someone tomorrow Patient is considered an AMA risk, reports to this CANTEEN ATTENDANT she will stay this evening obviously, I have to CM team will plan to follow closely as medical plan of care unfolds, available if DC needs or concerns arise PRESTON An Discharge Planning/Care Management Discharge Assessment Start: 09/27/21 16:13 Freq: Status: Active Protocol: Document 09/27/21 16:14 WILLIAM (Rec: 09/27/21 16:15 WILLIAM [id number]) Discharge Planning Assessment Assigned Production Support Developer PRESTON Marcos DPOA/Assigned Designee Name Mariza Staley (Mother) ph# Advance Directives? No History Provided By Patient,Medical Record Has Patient been admitted in last 30 Yes days? Prior Living Arrangements Homeless Household Members none Independent with ADL's Yes Is patient alert and oriented? Yes Barriers to Discharge Yes Comment According to assessment completed 09.21.21: Patient reports that she will be going back to her truck. Patient gets funding for housing every month from [facility] but has not been able to find a place that will take her 2 dogs. Patient reports getting about $900.00 Patient denies that her dogs are currently in her truck. Transportation Arrangement Friend or family Referrals Initiated Other Additional Comment CANTEEN ATTENDANT to continue checking in with patient on needs. At this time patient denies any needs .
[2021-09-27 17:00] VITALS: BP 115/66; PULSE 90; RESP 14; TEMP 36.3; O2SAT 99
[2021-09-27 19:55] VITALS: BP 129/86; PULSE 88; RESP 18; TEMP 37.2; O2SAT 100
[2021-09-27 21:45] VITALS: BP 140/96; PULSE 92; RESP 20; TEMP 37.2; O2SAT 98
--- NOTE | 2021-09-27 22:33 | PC.NURSE ---
EVENT: ELA TEACHER reported patient left the room with boyfriend to check on dog and had not returned for approximately 1 hour. Security was called and they spotted the patient standing next to a car in the hospital parking lot. The patient returned to room fully alert and oriented and by herself. The patient verbalized she disconnected her IV fluids without staff help. Upon assessing the patient, the patient had in hand pen needles and continued to place them in her purse. The patient was asked by this RN What do you use those needles for? The patient responded she didn't know they were needles and found them in the supply cabinet in the room. This nurse took the needles and disposed of them in the biohazard. Patient is noted to be drowsy but still able to follow commands and speak. Patient was asked to not leave the room without notifying staff nor turning off the IV pump. Left arm is noted to have minimal swelling and there are red scabs scattered on both arms. Benedict have been removed and locked in the supply cabinet.
[2021-09-28] MEDS: VANCOMYCIN 1,000 MG/200 ML PIGGYBACK 200 MG IV ×2 (01:11→09:23)
[2021-09-28 01:20] VITALS: BP 115/71; PULSE 85; RESP 20; TEMP 36.9; O2SAT 98
[2021-09-28 08:40] LABS: Vancomycin Trough 17.2 ug/mL (10-20)
[2021-09-28] MEDS: VANCOMYCIN TROUGH 1 REQUEST MISC (09:23)
[2021-09-28] MEDS: cefTRIAXone 1,000 MG in SODIUM CHLORIDE 0.9% 100 ML 200 MG IV (10:19)
--- NOTE | 2021-09-28 10:41 | PC.NURSE ---
pt refused vitals.
--- NOTE | 2021-09-28 10:49 | PC.NURSE ---
Addendum entered by Silvia Guzman R.N. 09/28/21 15:16: Pt continues to be very lethargic today. She has not been given any narcotic pain medication by this nurse to account for her lethargy. She has been uninterested in waking up to eat food or participate in ADL's. She continues to be arousable to voice, but irritable. She refuses to keep her room door open. There is high suspicion that pt is self medicating out of a hidden stash in her room. Original Note: Pt is very sleepy but arousable by voice. She is refusing most care and is irritable when woken in the slightest. IV fluids and IV ABX continue to be administered.
--- NOTE | 2021-09-28 12:59 | P.PN_ITS ---
Subjective Subjective Date Patient Seen: 09/28/21 Interval history: 41 year old female admitted for LLE cellulitis. Improved slightly today. Denies fever, chills, chest pain, nausea, shortness of breath. Overnight patient eloped and returned quite somnolent. Visitors now restricted. Exam Vital Signs (past 8 hours): Oxygen Delivery Method Room Air Oxygen Flow Rate 0 Narrative Exam Narrative: General:? Patient is disheveled but in heavy makeup, no acute distress, somnolent but arousable CV: RRR Pulm: no respiratory distress, CTA b/l Extremities: No joint effusions. No cyanosis or clubbing. LLE edema with skin findings noted below. Skin:?LLE erythema and warmth with edema. Tender. Extends from her L foot proximally past her ankle to lower calf. Circumferential dull erythema. Neuro:? Alert and orientated x3,?but quite somnolent today. sensation to touch intact in all extremities, no gross deficits noted of cranial nerves. Objective Labs Result Diagrams: 09/27/21 05:37 09/27/21 05:37 Labs: Laboratory Results - last 24 hr 09/28/21 07:46 Vancomycin Trough 17.2 PFSH Medical History History of narcotic addiction Methamphetamine use MRSA (methicillin resistant staph aureus) culture positive Surgical History History of breast augmentation Family History Mother Hypertension Brother Bipolar 1 disorder, depressed Social History household members: none Smoking Status: Current every day smoker alcohol intake: former Assessment & Plan Assessment & Plan narrative: This is a 41-year-old female with a history of methamphetamine and narcotic use who returns after a recent hospital admission for IV antibiotic treatment of cellulitis with Vancomycin now with a flare in the left leg cellulitis despite PO Linezolid. 1. Left leg cellulitis, present on admission. Active. -She already completed 4 days of IV vancomycin with improving appearance, discharged on Linezolid with recurrence. Will continue vancomycin and ceftriaxo ne given failure of outpatient treatment. LE ultrasound to r/o DVT given recurrence was negative for DVT. 2. Narcotic Addiction, present on admission. Active. -Admitted to regular Fentanyl use at her last admission a week ago -High risk to leave AMA Time Spent With Patient Critical Care time: I spent a total of [] minutes of critical care time on this patient's care today; this time is exclusive of procedural time.
[2021-09-28 17:00] VITALS: BP 129/81; PULSE 90; RESP 18; TEMP 36.2; O2SAT 98
[2021-09-28 19:45] VITALS: BP 135/92; PULSE 82; RESP 20; TEMP 36.6; O2SAT 98
[2021-09-28] MEDS: VANCOMYCIN 750 MG/150 ML PIGGYBACK 150 MG IV (19:48)
[2021-09-29] MEDS: VANCOMYCIN 750 MG/150 ML PIGGYBACK 150 MG IV ×2 (02:55→10:44)
[2021-09-29] MEDS: cefTRIAXone 1,000 MG in SODIUM CHLORIDE 0.9% 100 ML 200 MG IV (07:55)
[2021-09-29] MEDS: SODIUM CHLORIDE 0.9% 1,000 ML 100 ML IV (07:56)
--- NOTE | 2021-09-29 10:35 | P.DS_ITS ---
History of Present Illness History of Present Illness Date Patient Seen: 09/29/21 Chief complaint: MRSA Narrative: Per Dr. Bhandari, This is a 41-year-old female with a history of methamphetamine and narcotic use who returns after a recent hospital admission for IV antibiotic treatment of cellulitis with Vancomycin now with a flare in the left leg cellulitis despite 2 days of PO Linezolid. She tells me that she moved from [place] several years ago and does not have a local primary care physician. She was hospitalized for 4 days on vancomycin last week with reported significant improvements in the appearance of the left leg which has now recurred. She had admitted at the last admission to the use of fentanyl regularly. Discharge Providers Provider Date of admission: 09/26/21 23:15 Discharge Date: 09/29/21 Discharge provider: Thomas Medeiros DO Summary Hospital Course Discharge Diagnosis: 1. Left leg cellulitis, present on admission.? Active.? -She already completed 4 days of IV vancomycin with improving appearance, discharged on Linezolid with recurrence. Will continue vancomycin and ceftria xone given failure of outpatient treatment. ?LE ultrasound to r/o DVT given recurrence was negative for DVT. 2. Narcotic Addiction, present on admission.? Active. -Admitted to regular Fentanyl use at her last admission a week ago -High risk to leave AMA Hospital Course: This is a 41-year-old female with a history of methamphetamine and narcotic use who returns after a recent hospital admission for IV antibiotic treatment of cellulitis with Vancomycin now with a flare in the left leg cellulitis despite PO Linezolid. She was admitted for failure of outpatient treatment. She was started on ceftriaxone and vancomycin with resolution of her cellulitis at the time of discharge. US was checked given recurrence but ruled out confounding DVT. Patient was then discharged home to complete 1 additional week of cephalexin and her remaining linezolid (7 days left in her bottle). She eloped overnight during the course of her stay, and was brought back by security after being found near her car, and she was quite somnolent afterwards. Visitors were subsequently restricted. She was alert, oriented, and without symptoms including pain, nausea, or vomiting at the time of discharge. Time Spent with Patient Time spent: Greater than 30 minutes Exam Vital Signs (past 8 hours): Oxygen Delivery Method Room Air Oxygen Flow Rate 0 Narrative Exam Narrative: General:?Appears well today, no acute distress. CV: RRR Pulm: no respiratory distress, CTA b/l Extremities: No joint effusions. No cyanosis or clubbing. LLE edema with skin findings noted below. Skin:?LLE minimal erythema anteriorly just above her ankle, no warmth or tenderness today. Neuro:? Alert and orientated x3, sensation to touch intact in all extremities, no gross deficits noted of cranial nerves. Objective Labs Result Diagrams: 09/27/21 05:37 09/27/21 05:37 [facility] Medical History History of narcotic addiction Methamphetamine use MRSA (methicillin resistant staph aureus) culture positive Surgical History History of breast augmentation Family History Mother Hypertension Brother Bipolar 1 disorder, depressed Social History household members: none Smoking Status: Current every day smoker alcohol intake: former Discharge Plan Discharge Plan Patient Disposition: Home Provider Discharge Comment: You were admitted to the hospital with recurrence of your cellulitis. An additional antibiotic will be added. Please finish the remaining pills of your antibiotic and complete the week of cephalexin as well to avoid recurrence. Discharge orders & Medications Prescriptions: New cephalexin 500 mg tablet 500 mg PO QID 7 Days Qty: 28 0RF Continued linezolid 600 mg tablet 600 mg PO Q12H 10 Days Qty: 20 0RF Diet/Activity/Treatments Diet: Diet as Tolerated Activity: As tolerated Visit Report/Discharge Packet Instructions: Linezolid, Cephalexin Discharge Data Attending Provider: Alvina Bhandari
--- NOTE | 2021-09-29 14:57 | PC.NURSE ---
Discharge Note Patient A&O, VSS, RA, no complaints of pain discomfort. Discharge packet reviewed with patient, all questions/concerns. PIV/TELE discontinued. Patient able to pack all belongings. PO antibiotics retrieved for patient from [facility] and given to patient. Patient taken down to POV.
== END 2021-09-29 14:00 | disposition home or self-care (01) | DRG 383 ==
LOC: ED 21:47 → AC 23:31
PROVIDERS: Admitting Provider Family Medicine; Emergency Provider Emergency Medicine; Referring Provider Emergency Medicine; Visit Provider Family Medicine
DX: L03.116 Cellulitis of left lower limb (principal); F11.20 Opioid dependence, uncomplicated; F17.210 Nicotine dependence, cigarettes, uncomplicated; Z20.822 Contact with and (suspected) exposure to COVID-19
CPT/HCPCS: 36415; 71045; 80048; 80053; 80202; 81001; 81025; 83605; 83690; 84145; 85025; 87040; 87635; 93005; 93971; 96361; 96365; 96366; 96367; 99284; C9803; G0378; J0696